=== PATIENT | male | born 1975 | race Caucasian/White ===

== ENCOUNTER 2017-03-16 16:23 | Emergency (ER) | payer MEDICAID, OTHER ==
[~2017-03-16] VITALS: Ht 177.8 cm; Wt 85.8 kg
[2017-03-16 16:23] VITALS: BP 147/76
[~2017-03-16 16:23] MED LIST: CITA20TA4 PO; GABA-282 PO; LITH600C PO; QUET1TAB7 PO; QUET1TAB8 PO
== END 2017-03-16 17:03 | disposition home or self-care (01) ==
LOC: M ED 16:23
DX: S39.012A Strain of muscle, fascia and tendon of lower back, initial encounter (principal); X58.XXXA Exposure to other specified factors, initial encounter; Y92.89 Other specified places as the place of occurrence of the external cause; Y93.89 Activity, other specified; Y99.8 Other external cause status; Z79.01 Long term (current) use of anticoagulants; Z88.0 Allergy status to penicillin

== ENCOUNTER 2017-10-14 16:49 | Emergency (ER) | payer OTHER | END 2017-10-14 18:57 | disposition home or self-care (01) | LOC: M ED 18:57 | DX: F10.120 Alcohol abuse with intoxication, uncomplicated (principal); F19.120 Other psychoactive substance abuse with intoxication, uncomplicated; F31.9 Bipolar disorder, unspecified; F17.200 Nicotine dependence, unspecified, uncomplicated; Z88.0 Allergy status to penicillin | CPT/HCPCS: 99284 ==

== ENCOUNTER → 2018-09-28 | Outpatient (REF) | payer OTHER ==
[~2018-09-28] MED LIST changes: -GABA-282 PO; +GABA-843 PO
[2018-09-28 13:16] LABS: BLOOD UREA NITROGEN 10 MG/DL (7-18); CALCIUM LEVEL 8.6 MG/DL (8.5-10.1); CARBON DIOXIDE LEVEL 27 MEQ/L (21-32); CHLORIDE LEVEL 107 MEQ/L (98-107); CREATININE FOR GFR 0.82 MG/DL (0.70-1.30); GLOMERULAR FILTRATION RATE > 60.0 (>60); GLUCOSE, FASTING 95 MG/DL (70-100); SODIUM LEVEL 141 MEQ/L (136-145)
== END ==
LOC: M LAB REF 12:37
PROVIDERS: ATTEND Nurse Practitioner Primary Care
DX: R60.0 Localized edema (principal)

== ENCOUNTER 2019-05-11 15:31 | Emergency (ER) | payer OTHER, SELFPAY ==
[~2019-05-11] VITALS: Ht 180.3 cm; Wt 96.2 kg
[~2019-05-11 15:31] MED LIST changes: -CITA20TA4 PO; +CITA20TA6 PO
[2019-05-11 15:33] VITALS: BP 113/71
[2019-05-11] MEDS ORDERED: AUGM875T28 PO (16:31)
[2019-05-11] MEDS ORDERED: BENZ200C70 PO (16:31)
[2019-05-11] MEDS ORDERED: VENTAER INH (16:31)
== END 2019-05-11 16:49 | disposition home or self-care (01) ==
LOC: M ED 15:31
DX: J06.9 Acute upper respiratory infection, unspecified (principal); H66.001 Acute suppurative otitis media without spontaneous rupture of ear drum, right ear

== ENCOUNTER → 2020-06-16 | Outpatient (CLI) | payer MEDICAID ==
[~2020-06-16] MED LIST changes: +AUGM875T28 PO; +BENZ200C70 PO; +CLEO300C2 PO; +QUET100T2 PO; -QUET1TAB8 PO; +VENTAER INH
--- NOTE | 2020-06-16 21:27 | REP ---
INDICATION: SOFT TISSUE MASS ON RIGHT BUTTOCK COMPARISON: None TECHNIQUE: Real time sauceda scale ultrasound examination using linear high-frequency transducer. FINDINGS: Ultrasound examination at the site of palpable mass over the right gluteal region demonstrates a large multilobulated hyperechoic mass measuring approximately 7.5 x 2.6 x 6.0 cm. Color images demonstrate minimal flow along the periphery without internal appreciable vascularity. IMPRESSION: Lobulated hyperechoic mass suggesting lipoma. Correlation with CT or MRI should be considered for more definitive diagnosis. <Electronically signed by Karlos Guadarrama > 06/16/20 [id number]
== END ==
LOC: M RAD 12:52
PROVIDERS: ATTEND Surgery
DX: D48.7 Neoplasm of uncertain behavior of other specified sites (principal)

== ENCOUNTER 2020-07-22 18:01 | Emergency (ER) | payer MEDICARE ==
[~2020-07-22] VITALS: Ht 180.3 cm; Wt 81.8 kg
[2020-07-22] MEDS ORDERED: IBUP80TA PO (21:57)
[2020-07-22] MEDS ORDERED: MAGICMW SSP (21:57)
[2020-07-22] MEDS ORDERED: CLEO300C2 PO (21:57)
[2020-07-22] MEDS ORDERED: ACETAMINOPHEN 500 MG TAB PO ONE (22:00)
[2020-07-22] MEDS ORDERED: CLINDAMYCIN 150MG CAPSULE PO ONE (22:00)
[2020-07-22 22:07] VITALS: BP 132/79
== END 2020-07-22 22:13 | disposition home or self-care (01) ==
LOC: M ED 18:01
DX: K04.7 Periapical abscess without sinus (principal); K02.9 Dental caries, unspecified; F17.200 Nicotine dependence, unspecified, uncomplicated; Z88.0 Allergy status to penicillin

== ENCOUNTER → 2020-08-06 | Outpatient (CLI) | payer OTHER ==
[~2020-08-06] MED LIST changes: +GABA-282 PO; -GABA-843 PO; +IBUP80TA PO; +MAGICMW SSP; -QUET1TAB7 PO; +QUET25TA3 PO
== END ==
LOC: M LABSMTC 09:52
PROVIDERS: ATTEND Anesthesiology
DX: Z01.812 Encounter for preprocedural laboratory examination (principal); Z20.828 Contact with and (suspected) exposure to other viral communicable diseases

== ENCOUNTER 2020-08-08 07:53 | Day surgery (SDC) | payer OTHER ==
[~2020-08-08] VITALS: Ht 180.3 cm; Wt 91.6 kg
[~2020-08-08 07:53] MED LIST changes: +CelecoXIB (CeleBREX) 100 MG CAP PO ONE; +LR 1,000 ML IV ONE; +QUET1TAB7 PO; -QUET25TA3 PO
--- OUTSIDE RECORDS SUMMARY | 2020-08-08 07:56 | CCD | Continuity of Care Document ---
Author Author Vernon SHAH MD Organization Unknown Address [address] [facility] [address] [place] [address] Phone [phone] Care Team Providers Care Life Management Teacher Name Role Phone [place] M.D. AUTM [phone] Nevaeh Broderick DO AUTM [phone] Problems Description No Information Available Social History Type Date Description Comments Sex Unknown ETOH Use Denies alcohol use Tobacco Use Start: Unknown Patient is a current smoker, smo kes every day 2 ppd for 20 years Recreational Drug Use Denies Drug Use Allergies, Adverse Reactions, Alerts Active Allergies Reaction Severity Comments Date Penicillin V Nausea 05/27/2020 Medications Description No Active Medications Immunizations Description No Information Available Vital Signs Date Vital Result Comment 07/01/2020 3:49pm BP Systolic 127 mmHg BP Diastolic 78 mmHg Height 71 inches 5'11" Weight 195.00 lb BMI (Body Mass Index) 27.2 kg/m2 [place] Body Weight 172 lb Weight 88.452 kg BSA (Body Surface Area) 2.09 m2 05/27/2020 2:26pm BP Systolic 117 mmHg BP Diastolic 78 mmHg Height 71 inches 5'11" Weight 201.00 lb BMI (Body Mass Index) 28.0 kg/m2 [place] Body Weight 172 lb Weight 91.174 kg BSA (Body Surface Area) 2.11 m2 Results Description No Information Available Procedures Description No Information Available Medical Devices Description No Information Available Encounters Description No Information Available Assessments Description No Information Available Plan of Treatment No Information Available Functional Status Description No Information Available Mental Status Description No Information Available Referrals Description No Information Available
--- OUTSIDE RECORDS SUMMARY | 2020-08-08 07:56 | CCD ---
Author Author [facility] Organization [facility] Address Unknown Phone Unavailable Care Team Providers Care Consulting Analyst Name Role Phone Juvenal Rosenberg MD Unavailable Unavailable Juvenal Rosenberg MD Unavailable Unavailable Juvenal Rosenberg MD Unavailable Unavailable Juvenal Rosenberg MD Unavailable Unavailable Juvenal Rosenberg MD Unavailable Unavailable Juvenal Rosenberg MD Unavailable Unavailable Juvenal Rosenberg MD Unavailable Unavailable Juvenal Rosenberg MD Unavailable Unavailable Juvenal Rosenberg MD Unavailable Unavailable Juvenal Rosenberg MD Unavailable Unavailable Juvenal Rosenberg MD Unavailable Unavailable Juvenal Rosenberg MD Unavailable Unavailable Juvenal Rosenberg MD Unavailable Unavailable Juvenal Rosenberg MD Unavailable Unavailable Juvenal Rosenberg MD Unavailable Unavailable Juvenal Rosenberg MD Unavailable Unavailable Juvenal Rosenberg MD Unavailable Unavailable Juvenal Rosenberg MD Unavailable Unavailable Juvenal Rosenberg MD Unavailable Unavailable Juvenal Rosenberg MD Unavailable Unavailable Juvenal Rosenberg MD Unavailable Unavailable Juvenal Rosenberg MD Unavailable Unavailable Juvenal Rosenberg MD Unavailable Unavailable Juvenal Rosenberg MD Unavailable Unavailable Juvenal Rosenberg MD Unavailable Unavailable Juvenal Rosenberg MD Unavailable Unavailable Juvenal Rosenberg MD Unavailable Unavailable Juvenal Rosenberg MD Unavailable Unavailable Juvenal Rosenberg MD Unavailable Unavailable Juvenal Rosenberg MD Unavailable Unavailable Juvenal Rosenberg MD Unavailable Unavailable Juvenal Rosenberg MD Unavailable Unavailable Juvenal Rosenberg MD Unavailable Unavailable Juvenal Rosenberg MD Unavailable Unavailable Juvenal Rosenberg MD Unavailable Unavailable Juvenal Rosenberg MD Unavailable Unavailable Juvenal Rosenberg MD Unavailable Unavailable Juvenal Rosenberg MD Unavailable Unavailable Juvenal Rosenberg MD Unavailable Unavailable Rosenberg, Juvenal Bal MD Unavailable Unavailable Rosenberg, Juvenal Bal MD Unavailable Unavailable Rosenberg, Juvenal Bal MD Unavailable Unavailable Rosenberg, Juvenal Bal MD Unavailable Unavailable Rosenberg, Juvenal Bal MD Unavailable Unavailable Rosenberg, Juvenal Bal MD Unavailable Unavailable Rosenberg, Juvenal Bal MD Unavailable Unavailable Rosenberg, Juvenal Bal MD Unavailable Unavailable Rosenberg, Juvenal Bal MD Unavailable Unavailable Rosenberg, Juvenal Bal MD Unavailable Unavailable Rosenberg, Juvenal Bal MD Unavailable Unavailable Rosenberg, Juvenal Bal MD Unavailable Unavailable Rosenberg, Juvenal Bal MD Unavailable Unavailable Rosenberg, Juvenal Bal MD Unavailable Unavailable Rosenberg, Juvenal Bal MD Unavailable Unavailable Rosenberg, Juvenal Bal MD Unavailable Unavailable Rosenberg, Juvenal Bal MD Unavailable Unavailable Rosenberg, Juvenal Bal MD Unavailable Unavailable Rosenberg, Juvenal Bal MD Unavailable Unavailable Rosenberg, Juvenal Bal MD Unavailable Unavailable Rosenberg, Juvenal Bal MD Unavailable Unavailable Rosenberg, Juvenal Bal MD Unavailable Unavailable Rosenberg, Juvenal Bal MD Unavailable Unavailable Rosenberg, Juvenal Bal MD Unavailable Unavailable Rosenberg, Juvenal Bal MD Unavailable Unavailable Rosenberg, Juvenal aBl MD Unavailable Unavailable Rosenberg, Juvenal Bal MD Unavailable Unavailable Rosenberg, Juvenal Bal MD Unavailable Unavailable Rosenberg, Juvenal Bal MD Unavailable Unavailable Rosenberg, Juvenal Bal MD Unavailable Unavailable Rosenberg, Juvenal Bal MD Unavailable Unavailable Rosenberg, Juvenal Bal MD Unavailable Unavailable Rosenberg, Juvenal Bal MD Unavailable Unavailable Rosenberg, Juvenal Bal MD Unavailable Unavailable Rosenberg, Juvenal Bal MD Unavailable Unavailable Rosenberg, Juvenal Bal MD Unavailable Unavailable Rosenberg, Juvenal Bal MD Unavailable Unavailable Rosenberg, Juvenal Bal MD Unavailable Unavailable Rosenberg, Juvenal Bal MD Unavailable Unavailable Rosenberg, Juvenal Bal MD Unavailable Unavailable Rosenberg, Juvenal Bal MD Unavailable Unavailable Rosenberg, Juvenal Bal MD Unavailable Unavailable Rosenberg, Juvenal Bal MD Unavailable Unavailable Rosenberg, Juvenal Bal MD Unavailable Unavailable Rosenberg, Juvenal Bal MD Unavailable Unavailable Rosenberg, Juvenal Bal MD Unavailable Unavailable Rosenberg, Juvenal Bal MD Unavailable Unavailable Rosenberg, Juvenal Bal MD Unavailable Unavailable Rosenberg, Juvenal Bal MD Unavailable Unavailable Rosenberg, Juvenal Bal MD Unavailable Unavailable Gillian Harper Unavailable Lizzy Mcgowan Unavailable Re-disclosure Warning The records that you are about to access may contain information from federally-assisted alcohol or drug abuse programs. If such information is present, then the following federally mandated warning applies: This information has been disclosed to you from records protected by federal confidentiality rules (42 CFR part 2). The federal rules prohibit you from making any further disclosure of this information unless further disclosure is expressly permitted by the written consent of the person to whom it pertains or as otherwise permitted by 42 CFR part 2. A general authorization for the release of medical or other information is NOT sufficient for this purpose. The Federal rules restrict any use of the information to criminally investigate or prosecute any alcohol or drug abuse patient.The records that you are about to access may contain highly sensitive health information, the redisclosure of which is protected by Article 27-F of the [facility] Public Health law. If you continue you may have access to information: Regarding HIV / AIDS; Provided by facilities licensed or operated by the [facility] Office of Mental Health; or Provided by the [facility] Office for People With Developmental Disabilities. If such information is present, then the following [facility] mandated warning applies: This information has been disclosed to you from confidential records which are protected by state law. State law prohibits you from making any further disclosure of this information without the specific written consent of the person to whom it pertains, or as otherwise permitted by law. Any unauthorized further disclosure in violation of state law may result in a fine or group home sentence or both. A general authorization for the release of medical or other information is NOT sufficient authorization for further disc losure. Encounters Encounter Providers Location Date Indications Data Source(s ) Extended Individual Psychotherapy - 45 min Attender: Lizzy [facility] 08/05/2020 08:00:00 AM EST - 08/05/2020 08:00:00 AM EST [facility] ([facility]) Attender: Lizzy Juan M 08/05/2020 12:00:00 AM EST [facility] ([facility]) Attender: Lizzy Mcgowan 07/22/2020 12:00:00 AM EST [facility] ([facility]) Extended Individual Psychotherapy - 45 min Attender: Lizzy Juan M [facility] 07/21/2020 03:00:00 AM EST - 07/21/2020 03:00:00 AM EST [facility] ([facility]) Psychiatric Diagnostic Evaluation (Non-Medical) Attender: Isa Mcgowan [facility] 07/04/2020 01:00:00 AM EST - 07/04/2020 01:00:00 AM EST [facility] ([facility]) Attender: Lizzy Mcgowan 07/04/2020 12:00:00 AM EST [facility] ([facility]) Brief Individual Psychotherapy - 30 min Attender: Gillian pino [facility] 06/18/2020 02:45:00 AM EST - 06/18/2020 02:45:00 AM EST [facility] ([facility]) Attender: Gillian Leroy 06/18/2020 12:00:00 AM EST [facility] ([facility]) Outpatient Attender: Valeriano Rosenberg MD FP 01/24/2020 09:23:00 AM EDT [facility] Outpatient Attender: Valeriano Rosenberg MD FP 12/25/2019 07:45:02 PM EDT [facility] Outpatient Attender: Valeriano Rosenberg MD FP 12/16/2019 12:03:25 AM EDT [facility] Outpatient Attender: Valeriano Rosenberg MD FP 09/06/2019 05:30:02 PM [facility] Outpatient Attender: Valeriano Rosenberg MD FP 09/06/2019 05:29:01 PM [facility] Outpatient Attender: Valeriano Rosenberg MD FP 09/06/2019 01:17:01 PM [facility] Outpatient Attender: Valeriano Rosenberg MD FP 09/06/2019 01:16:01 PM [facility] Outpatient Attender: Valeriano Rosenberg MD FP 09/06/2019 12:19:01 PM [facility] Outpatient Attender: Valeriano Rosenberg MD FP 09/06/2019 09:40:34 AM [facility] Outpatient Attender: Valeriano Rosenberg MD FP 08/31/2019 08:01:44 PM [facility] Outpatient Attender: Valeriano Rosenberg MD FP 08/27/2019 12:15:00 PM [facility] Outpatient Attender: Valeriano Rosenberg MD FP 08/27/2019 12:14:00 PM [facility] Outpatient Attender: Valeriano Rosenberg MD FP 08/27/2019 12:09:01 PM [facility] Outpatient Attender: Valeriano Rosenberg MD FP 08/27/2019 12:08:01 PM [facility] Outpatient Attender: Valeriano Rosenberg MD FP 08/27/2019 12:02:01 PM [facility] Outpatient Attender: Valeriano Rosenberg MD FP 07/27/2019 08:01:02 PM [facility] Outpatient Attender: Valeriano Rosenberg MD FP 07/27/2019 11:07:02 AM EST [facility] Insurance Providers Payer name Policy type / Coverage type Policy ID Covered green party ID Covered green party's relationship to carrillo Policy [place] Plan Information MVP MCDO [id number] SP [id number] [id number] SP [id number] MVP GOLD [id number] SP [id number] MVP GOLD [id number] SP [id number] Self Pay P UNAVAILABLE S UNAVAILA BLE Medicaid P [id number] S [id number] Managed Care [place] P [id number] S [id number] Medicaid S [id number] S [id number] Managed Care - [facility] Community Plan P [id number] S [id number] Medicaid S [id number] S [id number] SELF PAY ONLY [id number] SP [id number] Managed Care - [facility] Community Plan P [id number] S [id number] Medicaid S [id number] BLANQUITA [id number] SP [id number] BLANQUITA [id number] SP [id number] [facility] BUS ANALYST DEPT [id number] SP [id number] Managed Care - Community Plan [facility] P [id number] S [id number] D Managed Care [facility] O UNAVAILABLE S UNAVAILABLE Medicaid Dental O [id number] S [id number] [facility] [id number] SP [id number] [facility] I [id number] Self [id number] UH I [id number] Self [id number] Managed Care - Community Plan [facility] P [id number] S [id number] Medicaid S [id number] S [id number] MEDICAID [id number] SP [id number] [facility] [id number] SP [id number] MEDICAID [id number] SP [id number] Managed Care - Community Plan [facility] P [id number] S [id number] Medicaid S [id number] S [id number] [facility](MCA[facility]) O [id number] S [id number] [employer] PLAN [id number] SP [id number] SELF PAY UNAVAILABLE SP UNAVAILA BLE UN COMMUNITY PLAN MCDO [id number] SP [id number] Problems, Conditions, and Diagnoses Code Display Name Description Problem Type Effective Dates Data Source(s) F12.10 Cannabis abuse, uncomplicated Cannabis Use Disorder, M ild Condition 08/05/2020 12:00:00 AM EST [facility] ([facility]) Z72.0 Tobacco use Tobacco Use Disorder, Mild Condition 0 08/05/2020 12:00:00 AM EST [facility] ([facility]) F31.9 Bipolar disorder, unspecified Unspecified Bipola r and Related Disorder Condition 08/05/2020 12:00:00 AM EST [facility] ([facility]) Z86.59 Personal history of other mental and beh avioral disorders H/O: schizophrenia 09/06/2019 05:28:40 PM EST [facility] K61.1 Rectal abscess Perirectal abscess 09/06/2019 05 :28:40 PM [facility] Surgeries/Procedures Procedure Description Date Indications Data Source(s) Extended Individual Psychotherapy - 45 min 08/05/2020 12:00:00 AM EST - 08/05/2020 12:00:00 AM EST [facility] ([facility]) Extended Individual Psychotherapy - 45 min 12:00:00 AM EST [facility] ([facility]) Extended Individual Psychotherapy - 45 min 07/22/2020 12:00:00 AM EST - 07/22/2020 12:00:00 AM EST [facility] ([facility]) Extended Individual Psychotherapy - 45 min 12:00:00 AM EST [facility] ([facility]) Psychiatric Diagnostic Evaluation (Non-Medical) 07/04/2020 12:00:00 AM EST - 07/04/2020 12:00:00 AM EST [facility] ([facility]) Psychiatric Diagnostic Evaluation (Non-Medical) 2019 12:00:00 AM EST [facility] ([facility]) Brief Individual Psychotherapy - 30 min 06/18/2020 12:00:00 AM EST - 06/18/2020 12:00:00 AM EST [facility] ([facility]) Brief Individual Psychotherapy - 30 min 06/18/2020 12: 00:00 AM EST [facility]) Results ID Date Data Source [id number] 08/06/2020 09:40:00 AM EST BENJAMIN Name Value Range Interpretation Code Description Data Karin rce(s) Supporting Document(s) SARS coronavirus 2 RNA [Presence] in Res piratory specimen by WANDA with probe detection NEGATIVE NYSDOH This lab was ordered by [facility] a nd reported by [facility]. ID Date Data Source [id number] 09/06/2019 09:25:15 AM EST [facility] Measurements & CalculationsHeight: 71 inches 180.34 cm Weight: 201.2 pounds 91.45 kg Body Mass Index (BMI): 28.16BMI Interpretation: OverweightBody Surface Area (BSA): 2.12Weight Management Education Done (Nutrition/Physical Activity)Vital SignsTemperature: 97.5F oral Pulse Rate: 76 beats/minuteRespiratory Rate: 20 respirations/minuteBlood Pressure: 119/70 left arm sitting automaticO2 Saturation: 99% room airVital Signs performed by: Bhanu Summers MA, September 06, 2019 9:31 AMInitial Intake Information from: ptRoom #: 14Smoking, Tobacco, Vaping or Smoke Exposure StatusSmoke Status: current every day smokerTobacco Use: YesDo you vape? YesWhat is in your device? nicotinePassive Smoke Exposure: YesHealthcare HistorySince your last office visit...Have you been admitted to the hospital? NoHave you been to an emergency room (ER) or urgent care clinic? NoHave you seen another healthcare provider? NoHave you seen a dentist? NoIntake performed by: Bhanu Summers MA, September 06, 2019 9:32 AMRate Your HealthIn general, would you say your health is? FairPain AssessmentAre you currently having any pain which... You would like your provider to address? No Affects your activity level? NoDepression Screening - PHQ-2Over the last two weeks, have you... Had little interest or pleasure in doing things? More than half the days Been feeling down, depressed, or hopeless? Several days PHQ-2 Score: 3Anxiety Screening - TAMI-2Over the last two weeks, have you been... Feeling nervous, anxious, or on edge? Nearly every day Unable to stop or control worrying? Nearly every day TAMI-2 Score: 6Infectious Disease / Travel ScreeningRecent travel for you, your family, and/or any sexual partners? NoGeneralized Anxiety Disorder 7-Item Screening (TAMI-7)Answer Guide:0 = Not at all1 = Several days2 = Over half the days3 = Nearly every dayOver the last 2 weeks, how often have you been bothered by the following problems?Feeling nervous, anxious, or on edge: 3Not being able to stop or control worryinWorrying too much about different things: 3Trouble relaxinBeing so restless that it's hard to sit still: 3Becoming easily annoyed or irritable: 0Feeling afraid as if something awful might happen: 3Answer Guide:0 = Not difficult at all1 = Somewhat difficult2 = Very difficult3 = Extremely difficultHow difficult have these made it for you to do your work, take care of things at home, or get along with other people? 3GAD-7 Screening Results TAMI-2 Score: 6GAD-7 Score: 18Functional Impairment: Extremely difficultRecommendation: Severe anxietyPHQ-9 1. Over the last 2 weeks, patient reports the following frequency of symptoms: a. Little interest or pleasure in doing things -More than half the days b. Feeling down, depressed, or hopeless -Several days c. Trouble falling asleep, staying asleep , or sleeping too much -Several days d. Feeling tired or having little energy -Not at all e. Poor appetite or overeating -Nearly every day f. Feeling bad about yourself, feeling that you are a failure, or feeling that you have let yourself or your family down -Nearly every day g. Trouble concentrating on things such as reading the newspaper or watching television -Nearly every day h. Moving or speaking so slowly that other people could have noticed. Or being so fidgety or restless that you have been moving around a lot more than usual -More than half the days i. Thinking that you would be better off or that you want to hurt yourself in some way -Not at all2. If you checked off any problems, how difficult have these problems made it for you to do your work, take care of things at home, or get along with other people? -Very DifficultToday's PHQ-9 Results Score: 15 Severity: Moderately Severe Diagnosis Recommendation: Major Depression Functional Impairment: Very DifficultScreening, Brief Intervention, & Referral to Treatment (SBIRT)Pre-Screening Questions How many times have you have 5 or more drinks in a day? 0How many times have you used an illegal drug or used a prescription medication for a non-medical reason? 100Performed by: Bhanu Summers MA, September 06, 2019 9:38 AMDAST Have you used drugs other than those required for medical reasons? Yes Do you abuse more than one drug at a time? No Are you always able to stop using drugs when you want to? Yes Have you ever had blackouts or flashbacks as a result of drug use? No Do you ever feel bad or guilty about your drug use? No Does your spouse (or parents) ever complain about your involvement with your drugs? No Have you neglected your family because of your use of drugs? No Have you engaged in illegal activities in order to obtain drugs? No Have you ever experienced withdrawal symptoms (felt sick) when you stopped taking drugs? No Have you had medical problems as a result of your drug use (e.g. memory loss, hepatitis, convulsions, bleeding )? NoToday's Results: DAST Score: 1 DAST Interpretation: Brief Intervention Performed by: Bhanu Summers MA, September 06, 2019 9:39 AMPatient History Medical History:Anxiety DisorderDepression PTSDschizophrenicSurgical History:unknown surgery on throat. Family History:Anxiety (Mother)Anxiety (Father)Mother -schizophrenicfather - schizophrenicSocial/Personal History: Chief Complaintnew pt History of Present Illness (HPI)pt states hes here to re-establish care. he states that he needs a referal to . pt states his anixety has been really bad for awhile, and he has been easily angered for some time. it has been keeping him from going to important appointments. pt states that he is taking random medications without perscription. at first he was taking his old medication. and then his mother he started taking her medications and now he just takes what ever he can obtain. pt states he is not dependant on these drugs. pt was released from skilled nursing about a year ago. he states he has a growth on his buttock and while in skilled nursing they told him it was just a zit or dry skin. pt states this "growth" has been growing larger for some time now. it makes it paintful for the patient to sit. pt also would like to talk about back pain. he feels as though he back is not aligned correctly. it hurts when he stands to do dishes. he feels as though we is leaning to one side. pt states he gets short of breath and when he breathes in it still hurts. pt said he just got over the flu. I, Bhanu Summers MA, am scribing for, and in the presence of, Ivanna Richards states he is nervous to go out in public, he gets nervous to go to the doctors. pt states he was taking seroquil randomly. pt states he was on 900 mg a day in skilled nursing. he states he was like a zombie. doctor will send in buspar and see how pt does on that. pt states that stress causes chest pain for him it makes it painful to breathe. States patient has huge boil on buttock. doctor states that pt needs to see surgeon that we will reffer him to. pt states he is really unsure off all MH dx. doctor will send in Seroquil as well as the Buspar daily for patients anxiety. Problem ReviewProblem List was reviewed and/or updated during this visit.Allergy ReviewAllergy List was reviewed and/or updated during this visit.Adult Preventive CareLabs/Meds/Other Counseling-Nutrition and Physical Activity:BMI Interpretation: Overweight (09/06/2019) Counseling: Done (09/06/2019) Physical Activity: Done (09/06/2019)Review of Systems General: Complains of sleep disturbances. Cardiovascular: Complains of chest pain. Respiratory: Complains of shortness of breath. Gastrointestinal: Denies nausea, vomiting, bleeding, burning, itching, irritation, cramps, diarrhea, bloody diarrhea, watery diarrhea, constipation, pain or discomfort, feeling any lumps or bumps, pain with BM, pain during receptive anal sex, change in bowel habits, fecal incontinence, abdominal pain, blood in stool, black or tarry stools, jaundice, heartburn, urge to defecate. Psychiatric: Complains of anxiety, feeling stressed. Physical ExamGeneral Appearance: well nourished, well hydrated, no acute distressRespiratory, Auscultation: clear to auscultation svitlana aterally; no rales, rhonchi, or wheezesRespiratory, Effort: no intercostal retractions or use of accessory musclesCardiovascular, Auscultation: S1, S2 audible; no murmur, rub, or gallop; RRRPeripheral Circulation: no clubbing, cyanosis, edema, or varicositiesAbdomen: soft, non-tender, no masses, bowel sounds normalGait & Station: normalSkin, Inspection: large tender cool perirectal abscess 6X8 cm, fluctuant, right central buttock areaOrientation: oriented to time, place, and personMood & Affect: sl anxiousJudgment & Insight: intactRate Your HealthIn general, would you say your health is? FairAssessment & Plan Problems:Added: H/O: schizophrenia (ICD-V11.0) (AGB32-N05.59) Assessment: added seroquelPerirectal abscess (ICD-566) (JRO88-I98.1) Assessment: need surgical referralAssessed:Anxiety Disorder (ICD-300.00) (ICD10- F41.9) Assessment: added busparAssessment not Saved H/O: schizophrenia (JYP26-T44.59): Comment Onlyadded seroquel, discussed anger issues for around 20 minutesMedication Changes:New Prescription:BUSPIRONE HCL 30 MG ORAL TABLET-one tab po QD Qty: 30[Tablet] Refills: 5 Method: ElectronicQUETIAPINE FUMARATE 200 MG ORAL TABLET-one tab po qhs Qty: 30[Tablet] Refills: 0 Method: ElectronicRemoved:NABUMETONE 500 MG ORAL TABLET-one po q12h prn dental pain. MDD 2., AMOXICILLIN 500 MG ORAL CAPSULE-one po tid for 10 days., GABAPENTIN 300 MG ORAL CAPSULE-1 pill po tid, CELEXA 20 MG ORAL TABLET-1 pill po dailyAllergies:* LITHIUM (Severe)Orders:Surgical Consult [CPT-72797] Adult - Ofc Vst, EST, Level IV [CPT-29142] ]Electronically signed by Romulo Snow DO on 0 09/06/2019 at 5:28 PM Name Value Range Interpretation Code Description Data Karin rce(s) Supporting Document(s) Procedure Social History Code Duration Value Status Description Data Source(s ) Smoking 08/05/2020 12:00:00 AM EST Unknown if ever smoked comp leted Unknown if ever smoked [facility] ([facility]) Smoking 07/22/2020 12:00:00 AM EST Unknown if ever smoked comp leted Unknown if ever smoked [facility] [facility] Smoking 07/04/2020 12:00:00 AM EST Unknown if ever smoked comp leted Unknown if ever smoked [facility] ([facility]) Smoking 06/18/2020 12:00:00 AM EST Unknown if ever smoked comp leted Unknown if ever smoked [facility] ([facility]) Vital Signs ID Date Data Source UNK Name Value Range Interpretation Code Description Data Source(s) Body surface area Derived from formula 2.09 m2 2.09 m2 [facility] ([facility]) Body weight 88.452 kg 88.452 kg [facility] ([facility]) [place] body weight 172 [lb_av] 172 [lb_av] [facility] Body mass index (BMI) [Ratio] 27.2 kg/m2 27.2 k g/m2 [facility] ([facility]) Body weight 195.00 [lb_av] 195.00 [lb_av] [facility] Body height 71 [in_i] 71 [in_i] [facility] ([facility]) 5'11" Diastolic blood pressure 78 mm[Hg] 78 mm[Hg] [facility] ([facility]) Systolic blood pressure 127 mm[Hg] 127 mm[Hg] [facility] Body surface area Derived from formula 2.11 m2 2.11 m2 [facility] ([facility]) Body weight 91.174 kg 91.174 kg [facility] ([facility]) [place] body weight 172 [lb_av] 172 [lb_av] [facility] Body mass index (BMI) [Ratio] 28.0 kg/m2 28.0 k g/m2 [facility] ([facility]) Body weight 201.00 [lb_av] 201.00 [lb_av] [facility] ([facility]) Body height 71 [in_i] 71 [in_i] [facility] ([facility]) 5'11" Diastolic blood pressure 78 mm[Hg] 78 mm[Hg] [facility] ([facility]) Systolic blood pressure 117 mm[Hg] 117 mm[Hg] Renzo ALEXIS ([facility])
--- OUTSIDE RECORDS SUMMARY | 2020-08-08 07:56 | CCD ---
Author Author Juan M Vernon Ball Organization Unknown Address [address] [address] Phone Care Team Providers Care Airline Lounge Receptionist Name Role Phone Lizzy Mcgowan PCP Allergies, Adverse Reactions, Alerts No Data in Section Problem List Concept Problem Description Status Start Date Created Date Resolv ed Date Snomed Code F31.9 Unspecified Bipolar and Related Disorder Active 07/22/2020 Z72.0 Tobacco Use Disorder, Mild Active 07/22/2020 F12.10 Cannabis Use Disorder, Mild Active 07/22/2020 Medications Rx Norm Medication Route Route Concept Start Date Stop Date Dosage Kemal quency Duration Formula Strength Dosage Form Dosage Form Code Dosage Description Medication Id Account Npid Author First Name Author Last Name Taxonomy Code Taxonomy Desc Phone Number [phone] mirtazapine 10/27/2018 at bedtime 45 mg tablet [phone] Tu Summers [id number] Psychiatric/Mental Health [phone] Social History Social History Element Description Concept Effective Date Smoking Status Unknown if ever smoked [id number] Immunizations No Data in Section Vital Signs No Data in Section Procedures Date Concept Id Description Targeted Site Concept Targeted Site Concept Type 07/21/2020 16283 Extended Individual Psychotherapy - 45 min CPT Patient has no history of implantable de vices Encounters Encounter Start Date End Date Encounter Type Description Diagnosis Di agnosis Desc Location Author First Name Author Last Name Npid Taxonomy Cod e Taxonomy Desc Phone Number Location Addr1 Location Addr2 Location City Location [facility] Location Zip [id number] 07/21/2020 07/21/2020 25928 Extended Individual Psych otherapy - 45 min F31.9 Bipolar disorder, unspecified [facility] Juan M Ball [phone] [id number] Mental Health [phone] [address] [address] Plan of Treatment No Data in Section Lab Results No Data in Section Instructions No Data in Section Insurance Providers Insurance Id Policy Effective Date Policy Thru Date Company Max ricardo [id number] 2020 [employer]
--- OUTSIDE RECORDS SUMMARY | 2020-08-08 07:56 | CCD ---
Author Author Juan M Vernon Ball Organization Unknown Address [address] [address] Phone Care Team Providers Care Handyperson Name Role Phone Lizzy Mcgowan PCP Allergies, Adverse Reactions, Alerts No Data in Section Problem List Concept Problem Description Status Start Date Created Date Resolv ed Date Snomed Code F31.9 Unspecified Bipolar and Related Disorder Active 08/05/2020 Z72.0 Tobacco Use Disorder, Mild Active 08/05/2020 F12.10 Cannabis Use Disorder, Mild Active 08/05/2020 Medications Rx Norm Medication Route Route Concept Start Date Stop Date Dosage Kemal quency Duration Formula Strength Dosage Form Dosage Form Code Dosage Description Medication Id Account Npid Author First Name Author Last Name Taxonomy Code Taxonomy Desc Phone Number [phone] mirtazapine 10/27/2018 at bedtime 45 mg tablet [phone] Tu Summers [id number] Psychiatric/Mental Health [phone] Social History Social History Element Description Concept Effective Date Smoking Status Unknown if ever smoked [id number] Immunizations No Data in Section Vital Signs No Data in Section Procedures Date Concept Id Description Targeted Site Concept Targeted Site Concept Type 08/05/2020 90914 Extended Individual Psychotherapy - 45 min CPT Patient has no history of implantable de vices Encounters Encounter Start Date End Date Encounter Type Description Diagnosis Di agnosis Desc Location Author First Name Author Last Name Npid Taxonomy Cod e Taxonomy Desc Phone Number Location Addr1 Location Addr2 Location City Location [facility] Location Zip [id number] 08/05/2020 08/05/2020 16810 Extended Individual Psych otherapy - 45 min F31.9 Bipolar disorder, unspecified [facility] Juan M Ball [phone] [id number] Mental Health [phone] [address] [address] Plan of Treatment No Data in Section Lab Results No Data in Section Instructions No Data in Section Insurance Providers Insurance Id Policy Effective Date Policy Thru Date Company Max ricardo [id number] 2020 [employer]
--- OUTSIDE RECORDS SUMMARY | 2020-08-08 07:56 | CCD ---
Author Author Vernon Harper Organization Unknown Address [address] [place] [address] Phone Care Team Providers Care Trawl Net Maker Name Role Phone Gillian Harper PCP Chief Complaint and Reason for Visit Chief Complaint Allergies, Adverse Reactions, Alerts No Data in Section Problem List Concept Problem Description Status Start Date Created Date Resolv ed Date Snomed Code F31.9 Unspecified Bipolar and Related Disorder Active 06/20/2020 Z72.0 Tobacco Use Disorder, Mild Active 06/20/2020 F12.10 Cannabis Use Disorder, Mild Active 06/20/2020 Medications Rx Norm Medication Route Route Concept Start Date Stop Date Dosage Kemal quency Duration Formula Strength Dosage Form Dosage Form Code Dosage Description Medication Id Account Npid Author First Name Author Last Name Taxonomy Code Taxonomy Desc Phone Number [phone] mirtazapine 10/27/2018 at bedtime 45 mg tablet [phone] Tu Summers [id number] Psychiatric/Mental Health 31 [phone] Social History Social History Element Description Concept Effective Date Smoking Status Unknown if ever smoked [id number] Immunizations No Data in Section Vital Signs No Data in Section Procedures Date Concept Id Description Targeted Site Concept Targeted Site Concept Type 06/18/2020 53233 Brief Individual Psychotherapy - 30 min CPT Patient has no history of implantable de vices Encounters Encounter Start Date End Date Encounter Type Description Diagnosis Di agnosis Desc Location Author First Name Author Last Name Npid Taxonomy Cod e Taxonomy Desc Phone Number Location Addr1 Location Addr2 Location City Location [facility] Location Zip [id number] 06/18/2020 06/18/2020 33875 Brief Individual Psychoth erapy - 30 min F31.9 Bipolar disorder, unspecified [facility] Juanito French [phone] [id number] Air Compressor Engineer [phone] [address] [place] [address] [address] [facility] [address] Plan of Treatment No Data in Section Lab Results No Data in Section Instructions No Data in Section Insurance Providers Insurance Id Policy Effective Date Policy Thru Date Leora Santana ame [id number] 2020 MEDICAID
--- OUTSIDE RECORDS SUMMARY | 2020-08-08 07:56 | CCD ---
Author Author Vernon Mcgowan Organization Unknown Address [address] [address] Phone Care Team Providers Care Intelligence Officer Basic Name Role Phone Lizzy Mcgowan PCP Allergies, Adverse Reactions, Alerts No Data in Section Problem List Concept Problem Description Status Start Date Created Date Resolv ed Date Snomed Code F31.9 Unspecified Bipolar and Related Disorder Active 07/04/2020 Z72.0 Tobacco Use Disorder, Mild Active 07/04/2020 F12.10 Cannabis Use Disorder, Mild Active 07/04/2020 Medications Rx Norm Medication Route Route Concept Start Date Stop Date Dosage Kemal quency Duration Formula Strength Dosage Form Dosage Form Code Dosage Description Medication Id Account Npid Author First Name Author Last Name Taxonomy Code Taxonomy Desc Phone Number [phone] mirtazapine 10/27/2018 at bedtime 45 mg tablet [phone] Tu Summers [id number] Psychiatric/Mental Health [phone] Social History Social History Element Description Concept Effective Date Smoking Status Unknown if ever smoked [id number] Immunizations No Data in Section Vital Signs No Data in Section Procedures Date Concept Id Description Targeted Site Concept Targeted Site Concept Type 07/04/2020 38892 Psychiatric Diagnostic Evaluation (Non-Medical) CPT Patient has no history of implantable de vices Encounters Encounter Start Date End Date Encounter Type Description Diagnosis Di agnosis Desc Location Author First Name Author Last Name Npid Taxonomy Cod e Taxonomy Desc Phone Number Location Addr1 Location Addr2 Location [facility] Location [facility] Location Zip [id number] 07/04/2020 07/04/2020 17538 Psychiatric Neha gnostic Evaluation (Non-Medical) F31.[address], [address] [facility] Juan M Ball [phone] [id number] Mental Health [phone] [address] [address] Plan of Treatment No Data in Section Lab Results No Data in Section Instructions No Data in Section Insurance Providers Insurance Id Policy Effective Date Policy Thru Date Leora Santana ame [id number] [facility]
--- OUTSIDE RECORDS SUMMARY | 2020-08-08 07:56 | CCD | Continuity of Care Document ---
Author Author Vernon SHAH MD Organization Unknown Address [address] [facility] [address] [place] [address] Phone [phone] Care Team Providers Care Solar Development Engineer Name Role Phone [place] M.D. AUTM [phone] Nevaeh Broderick DO AUTM [phone] Problems Description No Information Available Social History [...] Available Vital Signs Date Vital Result Comment 05/27/2020 2:26pm BP Systolic 117 mmHg BP Diastolic 78 mmHg Height 71 inches 5'11" Weight 201.00 lb BMI (Body Mass Index) 28.0 kg/m2 [place] Body Weight 172 lb Weight 91.174 kg Results Description No Information Available Procedures Description No Information Available Medical Devices Description No Information Available Encounters Description No Information Available Assessments Description No Information Available Plan of Treatment No Information Available Functional Status Description No Information Available Mental Status Description No Information Available Referrals Description No Information Available
[2020-08-08] MEDS ORDERED: ceFAZolin SOD 2 GM in IV 1 EA IV ONE (09:00)
[2020-08-08] MEDS ORDERED: propofoL 500 MG/50 ML VIAL As Ordered ONE (10:44)
[2020-08-08] MEDS ORDERED: MIDAZOLAM INJ 2MG/2ML VIAL (J2250 PER 1MG) As Ordered ONE (10:44)
[2020-08-08] MEDS ORDERED: LIDOCAINE 2% 100MG/5ML SDV (FOR ANES.) As Ordered ONE (10:45)
[2020-08-08] MEDS ORDERED: fentaNYL 100 MCG/2 ML INJECTION (J3010) As Ordered ONE ×2 (10:45→13:52)
[2020-08-08] MEDS ORDERED: ONDANSETRON 4MG/2ML VIAL As Ordered ONE (10:45)
[2020-08-08] MEDS ORDERED: dexameTHASONE 4 MG/ML 1ML VIAL (J1100 PER 1MG) As Ordered ONE (10:45)
[2020-08-08] MEDS ORDERED: BUPIVACAINE HCL 0.25% 30ML VIAL As Ordered ONE (10:57)
[2020-08-08] MEDS ORDERED: LIDOCAINE 1% SDV 30ML VIAL As Ordered ONE (10:57)
[2020-08-08] MEDS ORDERED: ACETAMINOPHEN 1000MG 100ML IV BTL (OFIRMEV) (J0131 PER 10MG) As Ordered ONE ×2 (11:14→12:29)
[2020-08-08] MEDS ORDERED: propofoL 200 MG/20 ML VIAL As Ordered ONE ×3 (12:03→12:31)
--- NOTE | 2020-08-08 13:39 | ROOPDOC ---
[facility] Report Of Operation Report of Operation DATE OF PROCEDURE: 08/08/20 PREPROCEDURE DIAGNOSES: large exophytic lipoma vs large wide base achrochordon. POSTPROCEDURE DIAGNOSES: same. PROCEDURE: Excision lipoma. SURGEON: Nas Diallo MD RADIO EQUIPMENT INSTALLER: ANESTHESIA: Monitored Anesthesia Care, local anesthesia with 1% lidocaine and 1/4% Marcaine. ESTIMATED BLOOD LOSS: Approximately 20 mL. COMPLICATIONS: none DRAIN: 10 F flat drain SPECIMEN: LIPOMA (10X7X 7 CMS skin and soft tissue). DESCRIPTION OF PROCEDURE: Patient received 2 g Ancef preoperatively for wound prophylaxis. He was brought to the operating room, placed on a prone position with pressure points well padded. Compression boots placed on bilateral lower extremities were DVT prophylaxis. His buttocks were taped apart for better exposure. Continued monitoring provided by anesthesia, IV sedation and started. The area of the right buttock and right thigh as well as partially the left buttock was prepped and draped in the usual sterile fashion using Betadine. We paused for a surgical timeout using both pre-incision safety checklist to verify correct patient, procedure site and additional clinical information prior to beginning the procedure Patient has this long-standing large exophytic soft tissue lump extending 13 cm transversely and about 10 cm vertically and protruding out more than 5 cm from the skin with a very large base, thinned out skin portion which on imaging is mostly containing fat tissue consistent with either an exophytic lipoma or a very large skin acrochordon with soft tissue attached to it. This is causing him discomfort that he was seeking removal. I infiltrated the skin and soft tissue around the soft tissue lump with a mixture of 1% lidocaine and 1/4% Marcaine as a field block. To be able to conservative some skin and the bigger chance of closing the incision I started about two [address] from the protrusion opening up the skin in elliptical fashion circumferentially around the soft tissue lump. The superficial subcutaneous tissue was likewise divided and was able to get in to a nice plane between the soft tissue lump and the skin and subcutaneous tissue flaps. I continued dissection following the plane and this is some multilobulat ed fat tissue with some flimsy encapsulation in between those lobulated tissue. I was able to remove this whole including the overlying skin. After doing so hemostasis done with Bovie cautery. I was left with a good-sized cavity but the flaps that I created seems to be able to come together without any tension. Thus I decided to leave a 10 flat KALEB drain inside of the cavity coming off laterally and inferiorly to catch expected postoperative drainage. I then closed the skin and subcutaneous tissue flap with 3-0 Vicryl in the deep/scarpas layer on top of the drain and superficial subcutaneous tissue as well as the dermis with 3-0 vicryl. Pathology. And of the flap was divided and closed the skin with a running suture of 4-0 Monocryl in a subcuticular fashion. Steri-Strips and bulky gauze dressings then placed covered with paper tape. The drain was secured to the skin with 2-0 silk. Patient was able to tolerate procedure well. Was promptly awakened and transferred to the stretcher and brought to recovery room in stable condition. NAS DIALLO MD Aug 08, 2020 13:39
[2020-08-08] MEDS ORDERED: ROCURONIUM BROMIDE 50 MG/5 ML VIAL As Ordered ONE (13:41)
[2020-08-08] MEDS ORDERED: HYDROMORPHONE HCL 0.5 MG/ 0.5 ML SYRINGE (J1170 PER 1) IV PRN (14:00)
[2020-08-08] MEDS ORDERED: fentaNYL 100 MCG/2 ML INJECTION (J3010) IV PRN (14:00)
[2020-08-08] MEDS ORDERED: LR 1,000 ML IV SCH (14:00)
[2020-08-08] MEDS ORDERED: ONDANSETRON 4MG/2ML VIAL IV PRN (14:00)
[2020-08-08] MEDS: oxyCODONE 5MG TAB PO PRN ×2 (14:13→15:08)
[2020-08-08 16:00] VITALS: BP 128/73
== END 2020-08-08 17:21 | disposition home or self-care (01) ==
LOC: M SDC 07:53
PROVIDERS: ATTEND Surgery
DX: D17.1 Benign lipomatous neoplasm of skin and subcutaneous tissue of trunk (principal); L91.8 Other hypertrophic disorders of the skin; F20.9 Schizophrenia, unspecified; F41.9 Anxiety disorder, unspecified; F32.9 Major depressive disorder, single episode, unspecified; F17.218 Nicotine dependence, cigarettes, with other nicotine-induced disorders; F12.10 Cannabis abuse, uncomplicated; Z79.899 Other long term (current) drug therapy; Z88.0 Allergy status to penicillin
CPT/HCPCS: 11406; 88304; J0131; J0690; J1100; J2250; J2405; J3010

== ENCOUNTER 2021-05-13 13:51 | Emergency (ER) | payer OTHER ==
[~2021-05-13] VITALS: Ht 180.3 cm; Wt 81.8 kg
[~2021-05-13 13:51] MED LIST changes: -CelecoXIB (CeleBREX) 100 MG CAP PO ONE; -LR 1,000 ML IV ONE; +QUET1TAB17 PO; -QUET1TAB7 PO
--- OUTSIDE RECORDS SUMMARY | 2021-05-13 14:00 | CCD ---
Author Author [facility] Organization [facility] Address Unknown Phone Unavailable Care Team Providers Care Senior Training And Development Rep Name Role Phone Yosef Blankenship ROTARY SOIL STABILIZER OPERATOR Unavailable Unavailable Yosef Blankenship NP Unavailable Unavailable Yosef Blankenship NP Unavailable Unavailable Paul SHAH MD Unavailable Unavailable Paul SHAH MD Unavailable Unavailable Paul SHAH MD Unavailable Unavailable Paul SHAH MD Unavailable Unavailable Paul SHAH MD Unavailable Unavailable Paul SHAH MD Unavailable Unavailable Paul SHAH MD Unavailable Unavailable Paul SHAH MD Unavailable Unavailable Paul SHAH MD Unavailable Unavailable Paul SHAH MD Unavailable Unavailable Paul HSAH MD Unavailable Unavailable Paul SHAH MD Unavailable Unavailable Paul SHAH MD Unavailable Unavailable Paul SHAH MD Unavailable Unavailable Paul SHAH MD Unavailable Unavailable Paul SHAH MD Unavailable Unavailable Paul SHAH MD Unavailable Unavailable Paul SHAH MD Unavailable Unavailable Paul SHAH MD Unavailable Unavailable Paul SHAH MD Unavailable Unavailable Paul SHAH MD Unavailable Unavailable Paul SHAH MD Unavailable Unavailable BARAYUGA, B KEIRA QUICK Unavailable Unavailable BARAYUGA, B KEIRA Unavailable Unavailable BARAYUGA, B KEIRA MD Unavailable Unavailable BARAYUGA, B KEIRA MD Unavailable Unavailable BARAYUGA, B KEIRA MD Unavailable Unavailable BARAYUGA, B KEIRA MD Unavailable Unavailable BARAYUGA, B KEIRA MD Unavailable Unavailable BARAYUGA, B KEIRA MD Unavailable Unavailable BARAYUGA, B KEIRA MD Unavailable Unavailable BARAYUGA, B KEIRA MD Unavailable Unavailable BARAYUGA, B KEIRA MD Unavailable Unavailable BARAYUGA, B KEIRA MD Unavailable Unavailable BARAYUGA, B KEIRA MD Unavailable Unavailable Gillian Harper Unavailable Lizzy Mcgowan Unavailable Unavailable Re-disclosure Warning The records that you [...] is protected by Article 27-F of the [facility] Public Health law. If you continue you may have access to information: Regarding HIV / AIDS; Provided by facilities licensed or operated by the [facility] Office of Mental Health; or Provided by the [facility] Office for People With Developmental Disabilities. If such information is present, then the following [facility] mandated warning applies: This information has been [...] law may result in a fine or usp sentence or both. A general authorization for the release of medical or other information is NOT sufficient authorization for further disc losure. Allergies and Adverse Reactions Type Description Substance Reaction Status Data Source(s ) Propensity to adverse reactions NO KNOWN ALLERGIES NO KNOWN ALLERGIES [facility] Encounters Encounter Providers Location Date Indications Data Source(s ) Outpatient Attender: Олег Blankenship NP [facility] 08/29/2020 01:00:00 AM EST - 08/29/2020 01:00:00 AM EST [facility]) Attender: Олег Blankenship NP 08/29/2020 12:00:00 AM EST [facility] ([facility]) Attender: Lizzy Mcgowan 08/20/2020 12:00:00 AM EST [facility] ([facility]) Extended Individual Psychotherapy - 45 min Attender: Lizzy Juan M [facility] 08/19/2020 04:00:00 AM EST - 08/19/2020 04:00:00 AM EST [facility] ([facility]) Outpatient Admitter: KEIRA SHAH MDReferrer: KEIRA ROBLES MD 08/14/2020 12:00:00 AM EST Benign lipomatous neoplasm, unspecified [facility] Benign lipomatous neoplasm, unspecified Telemed Diagnostic Eval Attender: Олег Blankenship NP [facility] 08/08/2020 03:00:00 AM EST - 08/08/2020 03:00:00 AM EST [facility] ([facility]) Attender: Олег Blankenship NP 08/08/2020 12:00:00 AM EST [facility] ([facility]) Extended Individual Psychotherapy - 45 min Attender: Lizzy Juan M [facility] 08/05/2020 08:00:00 AM EST - 08/05/2020 08:00:00 AM EST [facility] ([facility]) Attender: Lizzy Mcgowan 08/05/2020 12:00:00 AM EST [facility] ([facility]) Attender: Lizzy Mcgowan 07/22/2020 12:00:00 AM EST [facility] ([facility]) Extended Individual Psychotherapy - 45 min Attender: Lizzy Mcgowan [facility] 07/21/2020 03:00:00 AM EST - 07/21/2020 03:00:00 AM EST [facility] ([facility]) Psychiatric Diagnostic Evaluation (Non-Medical) Attender: Isa quintana Juan M [facility] 07/04/2020 01:00:00 AM EST - 07/04/2020 01:00:00 AM EST [facility] ([facility]) Attender: Lizzy Juan M 07/04/2020 12:00:00 AM EST [facility] ([facility]) Brief Individual Psychotherapy - 30 min Attender: Gillian pino [facility] 06/18/2020 02:45:00 AM EST - 06/18/2020 02:45:00 AM EST [facility] ([facility]) Attender: Gillian Harper 06/18/2020 12:00:00 AM EST [facility] ([facility]) Functional Status Medications Medication Brand Name Start Date Product Form Dose Route Admi nistrative Instructions Pharmacy Instructions Status Indications Reaction Description Data Source(s) Divalproex Sodium 500 MG Delayed Release Oral Tablet divalpr oex 08/08/2020 12:00:00 AM EST 500 mg by mouth completed <td ID="MedicationRxNorm_1">6094221</td><td ID="MedicationMedication_1">divalproex</td><td ID="MedicationRoute_1">by mouth</td><td ID="MedicationRouteConcept_1">Y96939</td><td ID="MedicationStartDate_1">08/08/2020</td><td ID="MedicationStopDate_1">10/07/2020</td><td ID="MedicationDosageFrequency_1">twice a day</td><td ID="MedicationDuration_1">30</td><td ID="MedicationFormulaStrength_1">500 mg</td><td ID="MedicationDosageForm_1">tablet,delayed release (DR/EC)</td><td ID="MedicationDosageFormCode_1"></td><td ID="MedicationDosageDescription_1"></td><td ID="MedicationMedicationId_1">[id number]</td><td ID="MedicationAccount_1">[id number]</td><td ID="MedicationNpid_1">[id number]</td><td ID="MedicationAuthorFirstName_1">Олег</td><td ID="MedicationAuthorLastName_1">Blankenship</td><td ID="MedicationTaxonomyCode_1">[id number]</td><td ID="MedicationTaxonomyDesc_1"> Nurse Practitioner</td><td ID="MedicationPhoneNumber_1">[phone]</td> [facility] quetiapine 200 MG Oral Tablet quetiapine 08/08/2020 12:00:00 AM EST 200 mg by mouth completed <td ID="Medica tionRxNorm_2">896111</td><td ID="MedicationMedication_2">quetiapine</td><td ID="MedicationRoute_2">by mouth</td><td ID="MedicationRouteConcept_2">D26353</td><td ID="MedicationStartDate_2">08/08/2020</td><td ID="MedicationStopDate_2">10/07/2020</td><td ID="MedicationDosageFrequency_2">at bedtime</td><td ID="MedicationDuration_2">30</td><td ID="MedicationFormulaStrength_2">200 mg</td><td ID="MedicationDosageForm_2">tablet</td><td ID="MedicationDosageFormCode_2"></td><td ID="MedicationDosageDescription_2"></td><td ID="MedicationMedicationId_2">[id number]</td><td ID="MedicationAccount_2">[id number]</td><td ID="MedicationNpid_2">[id number]</td><td ID="MedicationAuthorFirstName_2">Олег</td><td ID="MedicationAuthorLastName_2">Blankenship</td><td ID="MedicationTaxonomyCode_2">[id number]</td><td ID="MedicationTaxonomyDesc_2">Nurse Practitioner</td><td ID="MedicationPhoneNumber_2">[phone]</td> [facility] ([facility]) Prazosin 1 MG Oral Capsule prazosin 08/08/2020 12:00:00 AM EST 1 mg by mouth completed <td ID="Medicat ionRxNorm_4">067683</td><td ID="MedicationMedication_4">prazosin</td><td ID="MedicationRoute_4">by mouth</td><td ID="MedicationRouteConcept_4">J08259</td><td ID="MedicationStartDate_4">08/08/2020</td><td ID="MedicationStopDate_4">10/07/2020</td><td ID="MedicationDosageFrequency_4">at bedtime</td><td ID="MedicationDuration_4">30</td><td ID="MedicationFormulaStrength_4">1 mg</td><td ID="MedicationDosageForm_4">capsule</td><td ID="MedicationDosageFormCode_4"></td><td ID="MedicationDosageDescription_4"></td><td ID="MedicationMedicationId_4">[id number]</td><td ID="MedicationAccount_4">[id number]</td><td ID="MedicationNpid_4">[id number]</td><td ID="MedicationAuthorFirstName_4">Олег</td><td ID="MedicationAuthorLastName_4">Blankenship</td><td ID="MedicationTaxonomyCode_4">[id number]</td><td ID="MedicationTaxonomyDesc_4">Nurse Practitioner</td><td ID="MedicationPhoneNumber_4">[phone]</td> [facility] ([facility]) quetiapine 100 MG Oral Tablet quetiapine 08/08/2020 12:00:00 AM EST 100 mg by mouth completed <td ID="Medica tionRxNorm_3">537847</td><td ID="MedicationMedication_3">quetiapine</td><td ID="MedicationRoute_3">by mouth</td><td ID="MedicationRouteConcept_3">G30945</td><td ID="MedicationStartDate_3">08/08/2020</td><td ID="MedicationStopDate_3">10/07/2020</td><td ID="MedicationDosageFrequency_3">every morning</td><td ID="MedicationDuration_3">30</td><td ID="MedicationFormulaStrength_3">100 mg</td><td ID="MedicationDosageForm_3">tablet</td><td ID="MedicationDosageFormCode_3"></td><td ID="MedicationDosageDescription_3"> </td><td ID="MedicationMedicationId_3">[id number]</td><td ID="MedicationAccount_3">[id number]</td><td ID="MedicationNpid_3">[id number]</td><td ID="MedicationAuthorFirstName_3">Олег</td><td ID="MedicationAuthorLastName_3">Blankenship</td><td ID="MedicationTaxonomyCode_3">[id number]</td><td ID="MedicationTaxonomyDesc_3">Nurse Practitioner</td><td ID="MedicationPhoneNumber_3">[phone]</td> [facility] ([facility]) Insurance Providers Payer name Policy type / Coverage type Policy ID Covered republican ID Covered republican's relationship to [place] Policy [place] Plan Information Medicaid S [id number] S [id number] Managed Care - Community Plan [facility] P [id number] S [id number] Medicaid S [id number] S [id number] Managed Care - Community Plan [facility] P [id number] S [id number] Medicaid S [id number] S [id number] Managed Care - Community Plan [facility] P [id number] S [id number] Managed Care - [facility] Community Plan P [id number] S [id number] [facility] I [id number] Self [id number] [facility] I [id number] Self [id number] MVP I [id number] Self [id number] SELF PAY ONLY [id number] SP [id number] ROQUE [id number] SP [id number] ROQUE [id number] SP [id number] [facility] DEPT [id number] SP [id number] D [facility] Care [facility] O UNAVAILABLE S UNAVAILABLE Medicaid Dental O [id number] S [id number] [facility] COMMUNITY PLAN MCDO [id number] SP [id number] MEDICAID [id number] SP [id number] UN COMMUNITY PLAN MCDO [id number] SP [id number] MEDICAID [id number] SP [id number] [facility](MCAID) O [id number] S [id number] [employer] PLAN [id number] SP [id number] SELF PAY UNAVAILABLE SP UNAVAILA BLE UN COMMUNITY PLAN MCDHMO [id number] SP [id number] MVP MCDHMO [id number] SP [id number] [id number] SP [id number] MVP GOLD [id number] SP [id number] MVP GOLD [id number] SP [id number] Self Pay P UNAVAILABLE S UNAVAILA BLE Medicaid P [id number] S [id number] Managed Care [place] P [id number] S [id number] Medicaid S [id number] S [id number] Managed Care [facility] Community Plan P [id number] S [id number] Medicaid S [id number] S [id number] Problems, Conditions, and Diagnoses Code Display Name Description Problem Type Effective Dates Data Source(s) D17.9 Benign lipomatous neoplasm, unspecified Benign lipomatous neoplasm, unspecified Diagnosis 08/14/2020 11:14:00 AM EST [facility] F12.10 Cannabis abuse, uncomplicated Cannabis Use Disorder, M ild Condition 08/29/2020 12:00:00 AM EST [facility] ([facility]) Z72.0 Tobacco use Tobacco Use Disorder, Mild Condition 0 08/29/2020 12:00:00 AM EST [facility] ([facility]) F41.0 Panic disorder [episodic paroxysmal anxiety] Panic Dis order Condition 08/29/2020 12:00:00 AM EST [facility] ([facility]) F43.12 Post-traumatic stress disorder, chronic Post-traumatic stress disorder, chronic Condition 08/29/2020 12:00:00 AM EST [facility] ([facility]) F31.9 Bipolar disorder, unspecified Bipolar I Disorder, Current or most recent episode depressed, Unspecified Condition 08/29/2020 12:00:00 AM EST [facility] ([facility]) F12.10 Cannabis abuse, uncomplicated Cannabis Use Disorder, M ild Condition 08/05/2020 12:00:00 AM EST [facility] ([facility]) Z72.0 Tobacco use Tobacco Use Disorder, Mild Condition 0 08/05/2020 12:00:00 AM EST [facility] ([facility]) Surgeries/Procedures Procedure Description Date Indications Data Source(s) [facility] Telemed E/M Lvl 3--Est pt 08/29/2020 12:00:00 AM EST - 08/29/2020 12:00:00 AM EST [facility] ([facility]) [facility] Telemed E/M Lvl 3--Est pt 08/29/2020 12:00:[address] [facility] ([facility]) Extended Individual Psychotherapy - 45 min 08/20/2020 12:00:00 AM EST - 08/20/2020 12:00:00 AM EST [facility] ([facility]) Extended Individual Psychotherapy - 45 min 12:00:00 AM EST [facility] ([facility]) Telemed Diagnostic Eval 08/08/2020 12:00 :00 AM EST - 08/08/2020 12:00:00 AM EST [facility] ([facility]) Telemed Diagnostic Eval 08/08/2020 12:00:00 AM EST [facility] ([facility]) Extended Individual Psychotherapy - 45 min 08/05/2020 12:00:00 AM EST - 08/05/2020 12:00:00 AM EST [facility] ([facility]) Extended Individual Psychotherapy - 45 min 12:00:00 AM EST [facility] ([facility]) Extended Individual Psychotherapy - 45 min 07/22/2020 12:00:00 AM EST - 07/22/2020 12:00:00 AM EST [facility] ([facility]) Extended Individual Psychotherapy - 45 min 12:00:00 AM EST [facility] ([facility]) Psychiatric Diagnostic Evaluation (Non-Medical) 07/04/2020 12:00:00 AM EST - 07/04/2020 12:00:00 AM EST [facility] ([facility]) Psychiatric Diagnostic Evaluation (Non-Medical) 2019 12:00:00 AM EST [facility] ([facility]) Brief Individual Psychotherapy - 30 min 06/18/2020 12:00:00 AM EST - 06/18/2020 12:00:00 AM EST [facility] ([facility]) Brief Individual Psychotherapy - 30 min 06/18/2020 12: 00:00 AM EST [facility] Results ID Date Data Source [id number] 08/14/2020 12:53:00 PM EST [facility] Surgical Pathology ReportName: JENIFER SANTIZOMRN: [id number] Number: [id number] Date: 08/14/2020 00:00Received Date: 08/14/2020 11:16Physician(s): KEIRA SHAH MD VYAS,ABI [place],HUGHpecimen(s) ReceivedA: Material received for consultation, [place] [id number].Clinical HistoryRight buttock mass, suspected lipoma on U/S. Long standing exophytic softtissue "lump" on right buttock. Lipoma, rule out ALT/WD liposarcoma.DiagnosisSOFT TISSUE, RIGHT BUTTOCK, EXCISION ([id number], 08/08/20): LIPOMA. (SeeMicroscopic Description).Electronically Signed By Aguilar Lemus M.D., Attending Pathologist08/14/2020 12:53:05 Gross DescriptionReceived from [facility] in [place], [place] are 8 H and Estained slides and 5 paraffin blocks (A3, A4, A7, A8, A9) [id number] with the corresponding pathology report. Also received is theOP note and radiologic findings report.//jrsMicroscopic DescriptionThank you for letting me see this case in con sultation. Sections show amature adipose neoplasm with patchy areas of fat necrosis and fibrosis.There are also histiocytes present and reactive fibroblasts are seen incollagenous areas. I do not see any evidence of atypical spindle cells,atypical adipocytes or lipoblasts to suggest an atypical lipomatous tumor. This report may include one or more immunohistochemical stain results thatuse analyte specific reagents. All positive and negative controls havebeen reviewed by the attending pathologist and are satisfactory. The testswere developed and their performance characteristics determined by [facility] Path[facility] department. They have not been cleared or approved by the USFood and Drug Administration. The FDA has determined that such clearanceor approval is not necessary. Name Value Range Interpretation Code Description Data Karin e(s) Supporting Document(s) ID Date Data Source [id number] 08/06/2020 09:40:00 AM EST [facility] Name Value Range Interpretation Code Description Data Karin rce(s) Supporting Document(s) SARS coronavirus 2 RNA [Presence] in Res piratory specimen by WANDA with probe detection NEGATIVE [facility] This lab was ordered by [facility] a nd reported by [facility]. Procedure Social History Code Duration Value Status Description Data Source(s ) Smoking 08/29/2020 12:00:00 AM EST Unknown if ever smoked comp leted Unknown if ever smoked [facility] ([facility]) Smoking 08/20/2020 12:00:00 AM EST Unknown if ever smoked comp leted Unknown if ever smoked [facility] ([facility]) Smoking 08/08/2020 12:00:00 AM EST Unknown if ever smoked comp leted Unknown if ever smoked [facility] ([facility]) Smoking 08/05/2020 12:00:00 AM EST Unknown if ever smoked comp leted Unknown if ever smoked [facility] ([facility]) Smoking 07/22/2020 12:00:00 AM EST Unknown if ever smoked comp leted Unknown if ever smoked [facility] ([facility]) Smoking 07/04/2020 12:00:00 AM EST Unknown if ever smoked comp leted Unknown if ever smoked [facility] ([facility]) Smoking 06/18/2020 12:00:00 AM EST Unknown if ever smoked comp leted Unknown if ever smoked [facility] ([facility]) Vital Signs ID Date Data Source UNK Name Value Range Interpretation Code Description Data Source(s) Body height 71.00 in Normal (applies to non-numeric resu lts) [facility] Body weight Measured 203.00 lbs Normal (applies to n on-numeric results) 203.00 lbs [facility] ([facility]) Body mass index (BMI) [Ratio] 28.31 kg/m2 No rmal (applies to non-numeric results) 28.31 kg/m2 [facility] ([facility]) Systolic blood pressure 0 mm[Hg] Normal (applies t o non-numeric results) 0 mm[Hg] [facility] ([facility]) Diastolic blood pressure 0 mm[Hg] Normal (applies to non-numeric results) 0 mm[Hg] [facility] ([facility]) Systolic blood pressure 127 mm[Hg] 127 mm[Hg] M EDENT ([facility]) Diastolic blood pressure 78 mm[Hg] 78 mm[Hg] MED[facility] ([facility]) Body height 71 [in_i] 71 [in_i] [facility] 5'11" Body weight 195.00 [lb_av] 195.00 [lb_av] MEDEN T ([facility]) Body mass index (BMI) [Ratio] 27.2 kg/m2 27.2 k g/m2 [facility] [place] body weight 172 [lb_av] 172 [lb_av] [facility] T ([facility]) Body weight 88.452 kg 88.452 kg [facility]) Body surface area Derived from formula 2.09 m2 2.09 m2 [facility]) Body surface area Derived from formula 2.11 m2 2.11 m2 [facility]) Systolic blood pressure 117 mm[Hg] 117 mm[Hg] M [facility] ([facility]) Diastolic blood pressure 78 mm[Hg] 78 mm[Hg] [facility] ([facility]) Body height 71 [in_i] 71 [in_i] [facility] 5'11" Body weight 201.00 [lb_av] 201.00 [lb_av] MED[facility] T ([facility]) Body mass index (BMI) [Ratio] 28.0 kg/m2 28.0 k g/m2 [facility] [place] body weight 172 [lb_av] 172 [lb_av] MEDEN T ([facility]) Body weight 91.174 kg 91.174 kg [facility])
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
--- OUTSIDE RECORDS SUMMARY | 2021-05-13 16:01 | CCD ---
Author Author [facility] Organization [facility] Address Unknown Phone Unavailable Care Team Providers Care Adjunct Mathematics Instructor Name Role Phone Yosef Blankenship COMMERCIAL ANALYST Unavailable Unavailable Yosef Blankenship NP Unavailable Unavailable [...] SHAH MD Unavailable Unavailable BARAYUGA, B KEIRA MD [...] is protected by Article 27-F of the [facility] Public Health law. If you continue you may have access to information: Regarding HIV / AIDS; Provided by facilities licensed or operated by the [facility] Office of Mental Health; or Provided by the [facility] Office for People With Developmental Disabilities. If such information is present, then the following [facility] mandated warning applies: This information has been [...] law may result in a fine or longterm sentence or both. A general authorization for the release of medical or other information is NOT sufficient authorization for further disc losure. Allergies and Adverse Reactions Type Description Substance Reaction Status Data Source(s ) Propensity to adverse reactions NO KNOWN ALLERGIES NO KNOWN ALLERGIES [facility] Encounters Encounter Providers Location Date Indications Data Source(s ) Outpatient Attender: Олег Blankenship NP [facility] 08/29/2020 01:00:00 AM EST - 08/29/2020 01:00:00 AM EST [facility] ([facility]) Attender: Олег Blankenship NP 08/29/2020 12:00:00 AM EST [facility] ([facility]) Attender: Lizzy Mcgowan 08/20/2020 12:00:00 AM EST [facility] ([facility]) Extended Individual Psychotherapy - 45 min Attender: Lizzy Juan M [facility] 08/19/2020 04:00:00 AM EST - 08/19/2020 04:00:00 AM EST [facility] ([facility]) Outpatient Admitter: KEIRA SHAH MDReferrer: KEIRA ROBLES MD 08/14/2020 12:00:00 AM EST Benign lipomatous neoplasm, unspecified [facility] Benign lipomatous neoplasm, unspecified Telemed Diagnostic Eval Attender: Олег Blankenship NP [facility] 08/08/2020 03:00:00 AM EST - 08/08/2020 03:00:00 AM EST [facility] ([facility]) Attender: Олег Blankenship NP 08/08/2020 12:00:00 AM EST [facility] ([facility]) Extended Individual Psychotherapy - 45 min Attender: Lizzy Juan M [facility] 08/05/2020 08:00:00 AM EST - 08/05/2020 08:00:00 AM EST [facility] ([facility]) Attender: Lizzy Mcgowan 08/05/2020 12:00:00 AM EST [facility] ([facility]) Attender: Lizzy Mcgowan 07/22/2020 12:00:00 AM EST [facility] ([facility]) Extended Individual Psychotherapy - 45 min Attender: Lizzy Juan M [facility] 07/21/2020 03:00:00 AM EST - 07/21/2020 03:00:00 AM EST [facility] ([facility]) Psychiatric Diagnostic Evaluation (Non-Medical) Attender: Isa quintana Juan M [facility] 07/04/2020 01:00:00 AM EST - 07/04/2020 01:00:00 AM EST [facility] ([facility]) Attender: Lizzy Juan M 07/04/2020 12:00:00 AM EST [facility] ([facility]) Brief Individual Psychotherapy - 30 min Attender: Gillian pino [facility] 06/18/2020 02:45:00 AM EST - 06/18/2020 02:45:00 AM EST [facility] ([facility]) Attender: Gillian Hraper 06/18/2020 12:00:00 AM EST [facility] ([facility]) Functional Status Medications Medication Brand Name Start Date Product Form Dose Route Admi nistrative Instructions Pharmacy Instructions Status Indications Reaction Description Data Source(s) Divalproex Sodium 500 MG Delayed Release Oral Tablet divalpr oex 08/08/2020 12:00:00 AM EST 500 mg by mouth completed <td ID="MedicationRxNorm_1">1351030</td><td ID="MedicationMedication_1">divalproex</td><td ID="MedicationRoute_1">by mouth</td><td ID="MedicationRouteConcept_1">P76757</td><td ID="MedicationStartDate_1">08/08/2020</td><td ID="MedicationStopDate_1">10/07/2020</td><td ID="MedicationDosageFrequency_1">twice a day</td><td ID="MedicationDuration_1">30</td><td ID="MedicationFormulaStrength_1">500 mg</td><td ID="MedicationDosageForm_1">tablet,delayed release (DR/EC)</td><td ID="MedicationDosageFormCode_1"></td><td ID="MedicationDosageDescription_1"></td><td ID="MedicationMedicationId_1">[id number]</td><td ID="MedicationAccount_1">[id number]</td><td ID="MedicationNpid_1">[id number]</td><td ID="MedicationAuthorFirstName_1">Олег</td><td ID="MedicationAuthorLastName_1">Blankenship</td><td ID="MedicationTaxonomyCode_1">[id number]</td><td ID="MedicationTaxonomyDesc_1"> Nurse Practitioner</td><td ID="MedicationPhoneNumber_1">[phone]</td> [facility] quetiapine 200 MG Oral Tablet quetiapine 08/08/2020 12:00:00 AM EST 200 mg by mouth completed <td ID="Medica tionRxNorm_2">617937</td><td ID="MedicationMedication_2">quetiapine</td><td ID="MedicationRoute_2">by mouth</td><td ID="MedicationRouteConcept_2">T11974</td><td ID="MedicationStartDate_2">08/08/2020</td><td ID="MedicationStopDate_2">10/07/2020</td><td ID="MedicationDosageFrequency_2">at bedtime</td><td ID="MedicationDuration_2">30</td><td ID="MedicationFormulaStrength_2">200 mg</td><td ID="MedicationDosageForm_2">tablet</td><td ID="MedicationDosageFormCode_2"></td><td ID="MedicationDosageDescription_2"></td><td ID="MedicationMedicationId_2">[id number]</td><td ID="MedicationAccount_2">[id number]</td><td ID="MedicationNpid_2">[id number]</td><td ID="MedicationAuthorFirstName_2">Олег</td><td ID="MedicationAuthorLastName_2">Blankenship</td><td ID="MedicationTaxonomyCode_2">[id number]</td><td ID="MedicationTaxonomyDesc_2">Nurse Practitioner</td><td ID="MedicationPhoneNumber_2">[phone]</td> [facility] Prazosin 1 MG Oral Capsule prazosin 08/08/2020 12:00:00 AM EST 1 mg by mouth completed <td ID="Medicat ionRxNorm_4">552352</td><td ID="MedicationMedication_4">prazosin</td><td ID="MedicationRoute_4">by mouth</td><td ID="MedicationRouteConcept_4">A78063</td><td ID="MedicationStartDate_4">08/08/2020</td><td ID="MedicationStopDate_4">10/07/2020</td><td ID="MedicationDosageFrequency_4">at bedtime</td><td ID="MedicationDuration_4">30</td><td ID="MedicationFormulaStrength_4">1 mg</td><td ID="MedicationDosageForm_4">capsule</td><td ID="MedicationDosageFormCode_4"></td><td ID="MedicationDosageDescription_4"></td><td ID="MedicationMedicationId_4">[id number]</td><td ID="MedicationAccount_4">[id number]</td><td ID="MedicationNpid_4">[id number]</td><td ID="MedicationAuthorFirstName_4">Олег</td><td ID="MedicationAuthorLastName_4">Blankenship</td><td ID="MedicationTaxonomyCode_4">[id number]</td><td ID="MedicationTaxonomyDesc_4">Nurse Practitioner</td><td ID="MedicationPhoneNumber_4">[phone]</td> [facility] quetiapine 100 MG Oral Tablet quetiapine 08/08/2020 12:00:00 AM EST 100 mg by mouth completed <td ID="Medica tionRxNorm_3">053333</td><td ID="MedicationMedication_3">quetiapine</td><td ID="MedicationRoute_3">by mouth</td><td ID="MedicationRouteConcept_3">Q23475</td><td ID="MedicationStartDate_3">08/08/2020</td><td ID="MedicationStopDate_3">10/07/2020</td><td ID="MedicationDosageFrequency_3">every morning</td><td ID="MedicationDuration_3">30</td><td ID="MedicationFormulaStrength_3">100 mg</td><td ID="MedicationDosageForm_3">tablet</td><td ID="MedicationDosageFormCode_3"></td><td ID="MedicationDosageDescription_3"> </td><td ID="MedicationMedicationId_3">[id number]</td><td ID="MedicationAccount_3">[id number]</td><td ID="MedicationNpid_3">[id number]</td><td ID="MedicationAuthorFirstName_3">Олег</td><td ID="MedicationAuthorLastName_3">Blankenship</td><td ID="MedicationTaxonomyCode_3">[id number]</td><td ID="MedicationTaxonomyDesc_3">Nurse Practitioner</td><td ID="MedicationPhoneNumber_3">[phone]</td> [facility] ([facility]) Insurance Providers Payer name Policy type / Coverage type Policy ID Covered libertarian ID Covered libertarian's relationship to [place]rillo Policy [place] Plan Information Medicaid S [id number] S [id number] Managed Care - Community Plan [facility] P [id number] S [id number] Medicaid S [id number] S [id number] Managed Care - Community Plan [facility] P [id number] S [id number] Medicaid S [id number] S [id number] Managed Care - Community Plan [facility] P [id number] S [id number] Managed Care - [facility] Community Plan P [id number] S [id number] [facility] I [id number] Self [id number] [facility] I [id number] Self [id number] MVP I [id number] Self [id number] SELF PAY ONLY [id number] SP [id number] BLANQUITA [id number] SP [id number] BLANQUITA [id number] SP [id number] [facility] DEPT [id number] SP [id number] D [facility] Care [facility] O UNAVAILABLE S UNAVAILABLE Medicaid Dental O [id number] S [id number] [facility] COMMUNITY PLAN MCDO [id number] SP [id number] MEDICAID [id number] SP [id number] UN COMMUNITY PLAN MCDO [id number] SP [id number] MEDICAID [id number] SP [id number] [facility](MCAID) O [id number] S [id number] [employer]UE [employer] PLAN [id number] SP [id number] SELF PAY UNAVAILABLE SP UNAVAILA BLE UN COMMUNITY PLAN MCDHMO [id number] SP [id number] MVP MCDHMO [id number] SP [id number] [place] [id number] SP [id number] MVP GOLD [id number] SP [id number] MVP GOLD [id number] SP [id number] Self Pay P UNAVAILABLE S UNAVAILA BLE Medicaid P [id number] S [id number] Managed Care [place] P [id number] S [id number] Medicaid S [id number] S [id number] Managed Care [facility] Community Plan P [id number] S [id number] Medicaid S [id number] S [id number] Problems, Conditions, and Diagnoses Code Display Name Description Problem Type Effective Dates Data Source(s) D17.9 Benign lipomatous neoplasm, unspecified Benign lipomatous neoplasm, unspecified Diagnosis 08/14/2020 11:14:00 AM EST [facility] F12.10 Cannabis abuse, uncomplicated Cannabis Use Disorder, M ild Condition 08/29/2020 12:00:00 AM EST [facility] ([facility]) Z72.0 Tobacco use Tobacco Use Disorder, Mild Condition 0 08/29/2020 12:00:00 AM EST [facility] ([facility]) F41.0 Panic disorder [episodic paroxysmal anxiety] Panic Dis order Condition 08/29/2020 12:00:00 AM EST [facility] ([facility]) F43.12 Post-traumatic stress disorder, chronic Post-traumatic stress disorder, chronic Condition 08/29/2020 12:00:00 AM EST [facility] ([facility]) F31.9 Bipolar disorder, unspecified Bipolar I Disorder, Current or most recent episode depressed, Unspecified Condition 08/29/2020 12:00:00 AM EST [facility] ([facility]) F12.10 Cannabis abuse, uncomplicated Cannabis Use Disorder, M ild Condition 08/05/2020 12:00:00 AM EST [facility] ([facility]) Z72.0 Tobacco use Tobacco Use Disorder, Mild Condition 0 08/05/2020 12:00:00 AM EST [facility] ([facility]) Surgeries/Procedures Procedure Description Date Indications Data Source(s) [facility] [place] E/M Lvl 3--Est pt 08/29/2020 12:00:00 AM EST - 08/29/2020 12:00:00 AM EST [facility] ([facility]) [facility] Telemed E/M Lvl 3--Est pt 08/29/2020 12:00:[address] [facility] ([facility]) Extended Individual Psychotherapy - 45 min 08/20/2020 12:00:00 AM EST - 08/20/2020 12:00:00 AM EST [facility] ([facility]) Extended Individual Psychotherapy - 45 min 12:00:00 AM EST [facility] ([facility]) Telemed Diagnostic Eval 08/08/2020 12:00 :00 AM EST - 08/08/2020 12:00:00 AM EST [facility] ([facility]) Telemed Diagnostic Eval 08/08/2020 12:00:00 AM EST [facility] ([facility]) Extended Individual Psychotherapy - 45 min 08/05/2020 12:00:00 AM EST - 08/05/2020 12:00:00 AM EST [facility] ([facility]) Extended Individual Psychotherapy - 45 min 12:00:00 AM EST [facility] ([facility]) Extended Individual Psychotherapy - 45 min 07/22/2020 12:00:00 AM EST - 07/22/2020 12:00:00 AM EST [facility] ([facility]) Extended Individual Psychotherapy - 45 min 12:00:00 AM EST [facility] ([facility]) Psychiatric Diagnostic Evaluation (Non-Medical) 07/04/2020 12:00:00 AM EST - 07/04/2020 12:00:00 AM EST [facility] ([facility]) Psychiatric Diagnostic Evaluation (Non-Medical) 2019 12:00:00 AM EST [facility] ([facility]) Brief Individual Psychotherapy - 30 min 06/18/2020 12:00:00 AM EST - 06/18/2020 12:00:00 AM EST [facility] ([facility]) Brief Individual Psychotherapy - 30 min 06/18/2020 12: 00:00 AM EST [facility] ([facility]) Results ID Date Data Source [id number] 08/14/2020 12:53:00 PM EST [facility] Surgical Pathology ReportName: JENIFER SANTIZOMRN: [id number] Number: [id number] Date: 08/14/2020 00:00Received Date: 08/14/2020 11:16Physician(s): KEIRA SHAH MD VYAS,ABI Denton,HUGHpecimen(s) ReceivedA: Material received for consultation, [place], [place] [id number].Clinical HistoryRight buttock mass, suspected lipoma on U/S. Long standing exophytic softtissue "lump" on right buttock. Lipoma, rule out ALT/WD liposarcoma.DiagnosisSOFT TISSUE, RIGHT BUTTOCK, EXCISION ([id number], 08/08/20): LIPOMA. (SeeMicroscopic Description).Electronically Signed By Aguilar Lemus M.D., Attending Pathologist08/14/2020 12:53:05 Gross DescriptionReceived [facility] [place], [place] are 8 H and Estained slides and 5 paraffin blocks (A3, A4, A7, A8, A9) [id number] with the corresponding pathology report. Also received [...] developed and their performance characteristics determined by [facility] Path[facility] department. They have not been cleared or approved by the USFood and Drug Administration. The FDA has determined that such clearanceor approval is not necessary. Name Value Range Interpretation Code Description Data Karin rce(s) Supporting Document(s) ID Date Data Source [id number] 08/06/2020 09:40:00 AM EST [facility] Name Value Range Interpretation Code Description Data Karin rce(s) Supporting Document(s) SARS coronavirus 2 RNA [Presence] in Res piratory specimen by WANDA with probe detection NEGATIVE [facility] This lab was ordered by [facility] a nd reported by [facility]. Procedure Social History Code Duration Value Status Description Data Source(s ) Smoking 08/29/2020 12:00:00 AM EST Unknown if ever smoked comp leted Unknown if ever smoked [facility] ([facility]) Smoking 08/20/2020 12:00:00 AM EST Unknown if ever smoked comp leted Unknown if ever smoked [facility] ([facility]) Smoking 08/08/2020 12:00:00 AM EST Unknown if ever smoked comp leted Unknown if ever smoked [facility] ([facility]) Smoking 08/05/2020 12:00:00 AM EST Unknown if ever smoked comp leted Unknown if ever smoked [facility] ([facility]) Smoking 07/22/2020 12:00:00 AM EST Unknown if ever smoked comp leted Unknown if ever smoked [facility] ([facility]) Smoking 07/04/2020 12:00:00 AM EST Unknown if ever smoked comp leted Unknown if ever smoked [facility] ([facility]) Smoking 06/18/2020 12:00:00 AM EST Unknown if ever smoked comp leted Unknown if ever smoked [facility] ([facility]) Vital Signs ID Date Data Source UNK Name Value Range Interpretation Code Description Data Source(s) Body height 71.00 in Normal (applies to non-numeric resu lts) 71.00 in [facility] ([facility]) Body weight Measured 203.00 lbs Normal (applies to n on-numeric results) 203.00 lbs [facility] ([facility]) Body mass index (BMI) [Ratio] 28.31 kg/m2 No rmal (applies to non-numeric results) 28.31 kg/m2 [facility] ([facility]) Systolic blood pressure 0 mm[Hg] Normal (applies t o non-numeric results) 0 mm[Hg] [facility] ([facility]) Diastolic blood pressure 0 mm[Hg] Normal (applies to non-numeric results) 0 mm[Hg] [facility] ([facility]) Systolic blood pressure 127 mm[Hg] 127 mm[Hg] [facility] ([facility]) Diastolic blood pressure 78 mm[Hg] 78 mm[Hg] [facility] ([facility]) Body height 71 [in_i] 71 [in_i] [facility] ([facility]) 5'11" Body weight 195.00 [lb_av] 195.00 [lb_av] [facility] T ([facility]) Body mass index (BMI) [Ratio] 27.2 kg/m2 27.2 k g/m2 [facility] ([facility]) [place] body weight 172 [lb_av] 172 [lb_av] [facility] ([facility]) Body weight 88.452 kg 88.452 kg [facility] ([facility]) Body surface area Derived from formula 2.09 m2 2.09 m2 [facility] ([facility]) Body surface area Derived from formula 2.11 m2 2.11 m2 [facility] ([facility]) Systolic blood pressure 117 mm[Hg] 117 mm[Hg] [facility] ([facility]) Diastolic blood pressure 78 mm[Hg] 78 mm[Hg] [facility] ([facility]) Body height 71 [in_i] 71 [in_i] [facility] ([facility]) 5'11" Body weight 201.00 [lb_av] 201.00 [lb_av] [facility] ([facility]) Body mass index (BMI) [Ratio] 28.0 kg/m2 28.0 k g/m2 [facility] ([facility]) [place] body weight 172 [lb_av] 172 [lb_av] [facility] ([facility]) Body weight 91.174 kg 91.174 kg [facility] ([facility])
[2021-05-13] MEDS ORDERED: BOOSTRIX/ADACEL VACCINE (DIPHTH/PERTUSS/ACELL/TETANUS) 0.5ML SYR IM ONE (16:25)
[2021-05-13] MEDS ORDERED: MORPHINE 4 MG/ML 1ML VIAL/SYRINGE (J2270) IV ONE (16:25)
[2021-05-13] MEDS ORDERED: ceFAZolin SOD 2 GM in IV 1 EA IV ONE (16:25)
[2021-05-13 17:29] LABS: BASO # 0.1 10^3/uL (0.0-0.2); BASO % 0.6 % (0.0-1.0); EOS # 0.1 10^3/uL (0.0-0.5); EOS % 1.2 % (0.0-3.0); HEMATOCRIT 46.6 % (42.0-52.0); HEMOGLOBIN 15.7 g/dl (13.5-17.5); LYMPH # 2.7 10^3/uL (1.5-5.0); LYMPH % 25.6 % (24.0-44.0); MEAN CORPUSCULAR HEMOGLOBIN 31.8 pg (27.0-33.0); MEAN CORPUSCULAR HGB CONC 33.7 g/dl (32.0-36.5); MEAN CORPUSCULAR VOLUME 94.3 fl (80.0-96.0); MONO # 0.7 10^3/uL (0.0-0.8); MONO % 6.4 % (2.0-8.0); PLATELET COUNT, AUTOMATED 263 10^3/uL (150-450); RED BLOOD COUNT 4.94 10^6/uL (4.30-6.10); WHITE BLOOD COUNT 10.6 10^3/uL (4.0-10.0)
[2021-05-13 17:54] LABS: BLOOD UREA NITROGEN 15 MG/DL (7-18); CALCIUM LEVEL 9.3 MG/DL (8.5-10.1); CARBON DIOXIDE LEVEL 30 MEQ/L (21-32); CHLORIDE LEVEL 108 MEQ/L (98-107); CREATININE FOR GFR 0.75 MG/DL (0.70-1.30); GLOMERULAR FILTRATION RATE > 60.0 (>60); GLUCOSE, FASTING 87 MG/DL (70-100); POTASSIUM SERUM 5.2 MEQ/L (3.5-5.1); SODIUM LEVEL 137 MEQ/L (136-145)
[2021-05-13] MEDS ORDERED: HYDR-3713 PO (18:01)
[2021-05-13] MEDS ORDERED: CEPH500C PO (18:01)
[2021-05-13 18:10] VITALS: BP 125/78
== END 2021-05-13 18:28 | disposition home or self-care (01) ==
LOC: M ED 13:51
DX: S62.624B Displaced fracture of middle phalanx of right ring finger, initial encounter for open fracture (principal); S61.214A Laceration without foreign body of right ring finger without damage to nail, initial encounter; W23.0XXA Caught, crushed, jammed, or pinched between moving objects, initial encounter; Y92.89 Other specified places as the place of occurrence of the external cause; Y93.9 Activity, unspecified; Y99.9 Unspecified external cause status; F17.200 Nicotine dependence, unspecified, uncomplicated; Z88.0 Allergy status to penicillin
CPT/HCPCS: 73140; 80048; 85025; 90471; 90715; 96365; 96375; 99284; J0690; J2270

== ENCOUNTER 2021-11-12 20:27 | Emergency (ER) | payer OTHER ==
[~2021-11-12] VITALS: Ht 180.3 cm; Wt 89.9 kg
[~2021-11-12 20:27] MED LIST changes: +CEPH500C PO; +HYDR-3713 PO
[2021-11-12 20:28] VITALS: BP 115/64
== END 2021-11-13 00:08 | disposition left against medical advice (07) ==
LOC: M ED 20:27
DX: Z53.21 Procedure and treatment not carried out due to patient leaving prior to being seen by health care provider (principal)

== ENCOUNTER → 2022-02-05 | Outpatient (CLI) | payer OTHER ==
[2022-02-05 14:39] LABS: INR 0.96; PROTHROMBIN TIME 13.2 SECONDS (12.7-14.5)
[2022-02-09 15:09] LABS: HEPATITIS C QUANTITATION 170000 IU/mL (.)
== END ==
LOC: M LAB 12:38
PROVIDERS: ATTEND Nurse Practitioner Family
DX: B18.2 Chronic viral hepatitis C (principal)

== ENCOUNTER → 2022-02-19 | Outpatient (CLI) | payer OTHER ==
[2022-02-19 12:41] LABS: HEMATOCRIT 45.9 % (42.0-52.0); HEMOGLOBIN 15.4 g/dl (13.5-17.5); MEAN CORPUSCULAR HEMOGLOBIN 32.2 pg (27.0-33.0); MEAN CORPUSCULAR HGB CONC 33.6 g/dl (32.0-36.5); MEAN CORPUSCULAR VOLUME 95.8 fl (80.0-96.0); PLATELET COUNT, AUTOMATED 305 10^3/uL (150-450); RED BLOOD COUNT 4.79 10^6/uL (4.30-6.10); WHITE BLOOD COUNT 13.4 10^3/uL (4.0-10.0)
[2022-02-19 13:24] LABS: ALBUMIN 3.5 GM/DL (3.2-5.2); ALT/SGPT 22 U/L (12-78); BILIRUBIN,TOTAL 0.6 MG/DL (0.2-1.0); BLOOD UREA NITROGEN 12 MG/DL (7-18); CALCIUM LEVEL 8.9 MG/DL (8.5-10.1); CARBON DIOXIDE LEVEL 30 MEQ/L (21-32); CHLORIDE LEVEL 106 MEQ/L (98-107); CREATININE FOR GFR 0.83 MG/DL (0.70-1.30); GLOMERULAR FILTRATION RATE > 60.0 (>60); GLUCOSE, FASTING 67 MG/DL (70-100); POTASSIUM SERUM 4.2 MEQ/L (3.5-5.1); SODIUM LEVEL 140 MEQ/L (136-145)
[2022-02-19 14:13] LABS: HEPATITIS B SURFACE ANTIBODY NEGATIVE (POSITIVE)
[2022-02-19 14:52] LABS: HEPATITIS B CORE ANTIBODY IGM NEGATIVE (NEGATIVE); HIV 1&2 SCREEN CENTAUR NEGATIVE (NEGATIVE)
== END ==
LOC: M LAB 11:21
DX: B18.2 Chronic viral hepatitis C (principal)

== ENCOUNTER 2023-11-07 01:54 | Emergency (ER) | payer OTHER ==
[~2023-11-07] VITALS: Ht 180.3 cm; Wt 92.1 kg
[2023-11-07] MEDS ORDERED: DOXY100C3 PO (06:25)
[2023-11-07] MEDS ORDERED: SILV1CRE60 TOP (06:25)
[2023-11-07 06:30] VITALS: BP 121/73; TEMP 97.8; O2SAT 94
[2023-11-07] MEDS: SILVER SULFADIAZINE 1% CR 50 GM JAR TOP ONE (06:35)
[2023-11-07] MEDS: cefTRIAXone SOD 1 GM in D5W MINI-BAG PLUS 50 ML IV ONE (06:35)
[2023-11-07] MEDS: LIDOCAINE 1% SDV 5ML VIAL DILUENT ONE (06:50)
[2023-11-07] MEDS: cefTRIAXone SOD 1GM VIAL IM ONE (06:50)
== END 2023-11-07 06:55 | disposition home or self-care (01) ==
LOC: M ED 01:54
DX: T23.402A Corrosion of unspecified degree of left hand, unspecified site, initial encounter (principal); T24.122A Burn of first degree of left knee, initial encounter; L03.019 Cellulitis of unspecified finger; X58.XXXA Exposure to other specified factors, initial encounter; Y92.9 Unspecified place or not applicable; Y93.9 Activity, unspecified; Y99.0 Civilian activity done for income or pay; F31.9 Bipolar disorder, unspecified; R56.9 Unspecified convulsions; F17.200 Nicotine dependence, unspecified, uncomplicated; Z88.0 Allergy status to penicillin
CPT/HCPCS: 96372; 99283; J0696

== ENCOUNTER 2023-11-17 16:54 | Inpatient (IN) | payer OTHER ==
[~2023-11-17 16:54] MED LIST changes: +DOXY100C3 PO; +SILV1CRE60 TOP
[2023-11-17] MEDS: ALPRAZolam 0.5 MG TAB PO ONE (17:32)
[2023-11-17 17:50] LABS: HEMATOCRIT 46.8 % (42.0-52.0); HEMOGLOBIN 16.1 g/dl (13.5-17.5); MEAN CORPUSCULAR HGB CONC 34.4 g/dl (32.0-36.5); MEAN CORPUSCULAR VOLUME 95.9 fl (80.0-96.0); PLATELET COUNT, AUTOMATED 297 10^3/uL (150-450); RED BLOOD COUNT 4.88 10^6/uL (4.30-6.10); WHITE BLOOD COUNT 8.5 10^3/uL (4.0-10.0)
[2023-11-17 18:07] LABS: ETHYL ALCOHOL (ETHANOL) 0.164 % (0.000-0.010)
[2023-11-17 18:09] LABS: ALBUMIN 3.7 G/DL (3.2-5.2); ALKALINE PHOSPHATASE 78 U/L (46-116); ALT/SGPT 61 U/L (7.0-40); AST/SGOT 69 U/L (<34); BILIRUBIN,DIRECT 0.3 MG/DL (<0.4); BILIRUBIN,TOTAL 0.6 MG/DL (0.3-1.2); BLOOD UREA NITROGEN 10 MG/DL (9-23); CALCIUM LEVEL 8.6 MG/DL (8.5-10.1); CARBON DIOXIDE LEVEL 25 MMOL/L (20-31); CHLORIDE LEVEL 110 MMOL/L (98-107); CREATININE FOR GFR 0.82 MG/DL (0.70-1.30); GLOMERULAR FILTRATION RATE > 60.0 (>60); GLUCOSE, FASTING 95 MG/DL (60-100); POTASSIUM SERUM 4.2 MMOL/L (3.5-5.1); SALICYLATE LEVEL < 3.0 MG/DL (<30); SODIUM LEVEL 141 MMOL/L (136-145); TOTAL PROTEIN 7.2 G/DL (5.7-8.2)
[2023-11-17 18:12] LABS: THYROID STIMULATING HORMONE 0.917 uIU/ML (0.55-4.78)
[2023-11-17] MEDS: THIAMINE 100 MG TAB PO SCH (21:00)
[2023-11-17] MEDS ORDERED: MAALOX 30 ML SUSP *UDC PO PRN (23:10)
[2023-11-17] MEDS ORDERED: MOM 30ML SUSPENSION UDC PO PRN (23:10)
[2023-11-17] MEDS ORDERED: ACETAMINOPHEN TAB 650MG DOSE (2X325MG) PO PRN (23:10)
[2023-11-17] MEDS ORDERED: OLANZapine ORAL DISINTEGRATING TAB 5MG PO PRN (23:10)
[2023-11-18] VITALS (7 sets, daily range): BP systolic 92–144; BP diastolic 51–94; TEMP 97.9–98; O2SAT 96–99
[2023-11-18] MEDS ORDERED: MED REC CURRENTLY UNOBTAINABLE XX SCH (00:35)
[2023-11-18] MEDS: cloNIDine 0.1MG TABLET PO SCH (01:01)
[2023-11-18] MEDS: MULTIVITAMINS/MINERALS THERAP 1 TAB PO SCH (09:22)
[2023-11-18] MEDS: LORazepam 2 MG TAB PO PRN (09:22)
[2023-11-18] MEDS: FOLIC ACID 1MG TAB PO SCH (09:22)
[2023-11-18] MEDS: MUPIROCIN 2% OINT 22 GM TUBE TOP SCH (14:13)
[2023-11-18] MEDS ORDERED: SILV1CRE60 TOP (14:31)
[2023-11-18] MEDS ORDERED: HOME MED LIST COMPLETE! XX SCH (14:35)
[2023-11-18] MEDS: ALPRAZolam 0.5 MG TAB PO SCH (22:01)
[2023-11-19 05:30] VITALS: BP_SYST 108; BP_DIAS 73; BP_DIAS 83; TEMP 98; O2SAT 98
[2023-11-19] MEDS: NICOTINE 21MG/24HR 1 EA TRANSDERMAL TD PRN (09:09)
[2023-11-19] MEDS: lamoTRIgine 25MG TAB PO SCH (09:10)
[2023-11-19] MEDS: IBUPROFEN 400MG TAB PO PRN (09:10)
[2023-11-19] MEDS: diphenhydrAMINE 25MG CAP PO PRN (14:57)
[2023-11-19 15:33] VITALS: BP 137/76; TEMP 98.9; O2SAT 99
[2023-11-19] MEDS: MUPIROCIN 2% OINT 22 GM TUBE TOP SCH (16:20)
[2023-11-20 06:28] VITALS: BP 115/76; TEMP 98.5; O2SAT 100
[2023-11-20] MEDS: cloNIDine 0.1MG TABLET PO SCH (11:07)
[2023-11-20 15:30] VITALS: BP 128/72; TEMP 97.7; O2SAT 98
[2023-11-20 21:23] VITALS: BP 140/90
[2023-11-20] MEDS: traZODone 50 MG TAB PO PRN (21:26)
[2023-11-21 06:46] VITALS: BP 115/62; TEMP 98.3; O2SAT 100
[2023-11-21] MEDS ORDERED: CLONI1TA PO (08:23)
[2023-11-21] MEDS ORDERED: ALPR0.5T3 PO (08:23)
[2023-11-21] MEDS ORDERED: NICO21PAT TD (08:23)
[2023-11-21] MEDS ORDERED: LAMI25TA PO (08:23)
[2023-11-21 08:31] VITALS: BP 118/70
[2023-11-21 08:35] VITALS: BP 118/70
[2023-11-21] MEDS ORDERED: FOLI1TAB11 PO (08:54)
[2023-11-21] MEDS ORDERED: THIA100TA PO (08:54)
[2023-11-21] MEDS ORDERED: Multivitamins PO (08:54)
== END 2023-11-21 10:39 | disposition home or self-care (01) | DRG 753 ==
LOC: M ED 16:54 → M ED INP 23:07 → M PSY 11-18 00:39
PROVIDERS: ADMIT Student in an Organized Health Care Education/Training Program; ATTEND Student in an Organized Health Care Education/Training Program
DX: F31.9 Bipolar disorder, unspecified (principal); R45.850 Homicidal ideations; F60.2 Antisocial personality disorder; F17.200 Nicotine dependence, unspecified, uncomplicated; F10.10 Alcohol abuse, uncomplicated; F19.14 Other psychoactive substance abuse with psychoactive substance-induced mood disorder; Z56.0 Unemployment, unspecified; Z88.0 Allergy status to penicillin; Z65.3 Problems related to other legal circumstances; Z81.8 Family history of other mental and behavioral disorders

== ENCOUNTER 2024-01-11 20:08 | Emergency (ER) | payer MEDICAID, OTHER ==
[~2024-01-11 20:08] MED LIST changes: +ALPR0.5T3 PO; +CLONI1TA PO; +FOLI1TAB11 PO; +LAMI25TA PO; +Multivitamins PO; +NICO21PAT TD; +THIA100TA PO
== END 2024-01-12 02:43 | disposition left against medical advice (07) ==
LOC: M ED 20:08
DX: Z53.21 Procedure and treatment not carried out due to patient leaving prior to being seen by health care provider (principal)